=== PATIENT | male | born 1935 | race Caucasian/White ===

== ENCOUNTER → 2016-08-30 | Outpatient (CLI) | payer MEDICARE, OTHER | END | disposition home or self-care (01) | LOC: GMAB 14:10 | PROVIDERS: ATTEND Family Medicine | DX: R29.898 Other symptoms and signs involving the musculoskeletal system (principal) ==

== ENCOUNTER → 2017-02-15 | Outpatient (CLI) | payer MEDICARE, OTHER | END | disposition home or self-care (01) | LOC: GMAB 11:34 | PROVIDERS: ATTEND Family Medicine | DX: N18.4 Chronic kidney disease, stage 4 (severe) (principal) ==

== ENCOUNTER → 2017-04-28 | Outpatient (CLI) | payer MEDICARE, OTHER | END | disposition home or self-care (01) | LOC: GMAB 10:11 | PROVIDERS: ATTEND Family Medicine | DX: Z12.5 Encounter for screening for malignant neoplasm of prostate (principal); I10 Essential (primary) hypertension | CPT/HCPCS: 84443; G0103 ==

== ENCOUNTER 2017-05-05 11:59 | Inpatient (IN) | payer MEDICARE, OTHER ==
--- NOTE | 2017-05-05 12:30 | ED.PDOC ---
History of Present Illness - General Chief Complaint: Neuro Symptoms/Deficits Stated Complaint: change in mental status Time Seen by Provider: 05/05/17 12:23 Source: family Exam Limitations: clinical condition - History of Present Illness Initial Comments: THIS PATIENT COMES FROM HIS HOME AND IS TRASPORTED BY POV. HE HAS PARKINSON'S DISEASE AND PARKINSON'S DEMENTIA. HE HAS A NEUROLOGIST IN [place], [place]. THE PATIENT IS BROUGHT BECAUSE OF AMS. HE SUFFERS OF MULTIPLE FALLS AND HAS FALLEN IN THE RECENT PAST SEVERAL TIMES. HE HAS HIT HIS HEAD AT TIMES. YESTERDAY AROUND MIDNIGHT HIS MENTAL STATUS CHANGED, HE USUALLY IS MORE ALERT AND USUALLY ASSISTS WHEN HE GOES TO THE RESTROOM. DENIES ANY FEVER. HE IS SOMNOLENT BUT HE RESPONDS TO VERBAL AND PAINFUL STIMULI. Timing/Duration: other - LAST NIGHT Severity: moderate Improving Factors: nothing Worsening Factors: nothing Associated Symptoms: denies symptoms Allergies/Adverse Reactions: Allergies Sulfa Antibiotics Allergy (Verified 05/05/17 12:41) Home Medications: Ambulatory Orders Cetirizine HCl [Zyrtec] 10 mg PO DAILY@0700 12/27/13 Duloxetine HCl [Cymbalta] 60 mg PO DAILY@0700 12/27/13 Tamsulosin [Flomax] 0.4 mg PO BEDTIME 10/06/14 Carbidopa/Levodopa 25/100 [Sinemet 25/100] 1 ea PO TID 12/30/15 Memantine HCl-Donepezil HCl [Namzaric 14-10 mg] 1 cap PO DAILY 12/30/15 cloNAZepam [KlonoPIN] 0.25 mg PO DAILY PRN 05/05/17 Review of Systems - Review of Systems Constitutional: States: no symptoms reported EENTM: States: no symptoms reported Respiratory: States: no symptoms reported Cardiology: States: no symptoms reported Gastrointestinal/Abdominal: States: no symptoms reported Genitourinary: States: no symptoms reported Musculoskeletal: States: no symptoms reported Skin: States: no symptoms reported Neurological: States: other - ALTERED MENTAL STATUS Endocrine: States: no symptoms reported Hematologic/Lymphatic: States: no symptoms reported Unable to Obtain Due To: dementia, clinical condition Past Medical History (General) - Patient Medical History Hx Stroke: No Hx Dementia: Yes Hx Cardiac Disorders: - hyperlipidemia Hx Congestive Heart Failure: No Hx Hypertension: Yes Hx Diabetes: No - Vaccination History Hx Tetanus, Diphtheria Vaccination: Yes Hx Influenza Vaccination: Yes Hx Pneumococcal Vaccination: Yes - Social History Hx Tobacco Use: No Hx Alcohol Use: No Hx Substance Use: No Hx Substance Use Treatment: No Hx Depression: No - Female History Patient : No Family Medical History - Family History Father Family History: Unknown Living Status: Hx Cardiac Disease: Yes Physical Exam - Physical Exam General Appearance: Lethargic, Well Developed Eye Exam: bilateral abnormal pupil - MIOTIC PUPILS-ONE MM Ears, Nose, Throat: hearing grossly normal Neck: non-tender Respiratory: chest non-tender, lungs clear, normal breath sounds, no respiratory distress Cardiovascular/Chest: normal peripheral pulses, regular rate, rhythm, no edema, no gallop, no JVD, no murmur Peripheral Pulses: radial,right: 2+, radial,left: 2+ Gastrointestinal/Abdominal: normal bowel sounds, non tender, soft, no organomegaly, no pulsatile mass Rectal Exam: deferred Back Exam: normal inspection, no CVA tenderness, no vertebral tenderness Neurologic: other - UNABLE TO PERFORM A NERILOGICAL EXAM DUE TO THE PATIENTS CONDITION AND DEMENTIA Skin Exam: normal color Lymphatic: no adenopathy Progress - Results/Orders Results/Orders: LABORATORY AND IMAGING IS REPORTED. THE LAB OTHER THAN A MILD CASE OF VOLUME DEPLETION IS NORMAL. X RAYS OF THE CHEST, T S[INE, PELVIS AND L SPINE HAD NO OBVIOUS TRAUMATIC INJURIES. THE CT OF THE BRAIN WAS ALSO NEGATIVE FOR ACUTE PROCESS. THE UA AND UDS AND THE AMMONIUM LEVEL WERE NORMAL. I HAVE CONTACTED NATALYA SALEEM AND HE WILL BE ADMITTING THIS PATIENT FOR OBSERVATION AND RE HYDRATION. Departure - Departure Clinical Impression: Paralysis agitans, Volume depletion, Acute kidney injury Altered mental status Qualifiers: Altered mental status type: disorientation Qualified Code(s): R41.0 - Disorientation, unspecified Time of Disposition: 16:16 Disposition: Admit Patient Condition: Fair Departure Forms: ED Discharge - Pt. Copy, Patient Portal Self Enrollment Referrals: Dell Brady MD [Primary Care Provider] - 1-2 Weeks Home Medications: Ambulatory Orders Cetirizine HCl [Zyrtec] 10 mg PO DAILY@0700 12/27/13 Duloxetine HCl [Cymbalta] 60 mg PO DAILY@0700 12/27/13 Tamsulosin [Flomax] 0.4 mg PO BEDTIME 06/01/15 Carbidopa/Levodopa 25/100 [Sinemet 25/100] 1 ea PO TID 12/30/15 Memantine HCl-Donepezil HCl [Namzaric 14-10 mg] 1 cap PO DAILY 12/30/15 cloNAZepam [KlonoPIN] 0.25 mg PO DAILY PRN 05/05/17 Decision To Admit - Decistion To Admit Decision to Admit Reason: Admit from ER Decision to Admit Date: 05/05/17 Decision to Admit Time: 16:14
--- NOTE | 2017-05-05 12:53 | CT ---
EXAM DESCRIPTION: CT head without contrast CLINICAL HISTORY: Altered mental status. COMPARISON: MRI brain 02/24/2017 TECHNIQUE: Noncontrast spiral CT of the brain. This exam was performed according to our departmental dose-optimization program, which includes automated exposure control, adjustment of the mA and/or kV according to patient size and/or use of iterative reconstruction technique FINDINGS: No intracranial hemorrhage, evidence of cortical arterial infarction or mass lesion. Low-density focus in the anterior right thalamus consistent with a remote lacunar infarct based on the markedly low density. This was seen on previous CT. Periventricular white matter hypodensity related to remote microvascular ischemia Moderate cerebral volume loss with prominence of the cortical sulci and ventricular system No calvarial or skull base fracture. No mastoid fluid. Chronic right maxillary sinusitis. Interval development of mucosal thickening and a mucous retention cyst in the left sphenoid sinus since the previous CT IMPRESSION: Negative acute noncontrast head CT CT is insensitive for early evaluation of acute stroke. If there is clinical concern for acute ischemia, an MRI may be considered. Electronically signed by: Servando Dean MD 05/05/2017 12:52 PM [facility]
--- NOTE | 2017-05-05 13:44 | RAD ---
EXAM DESCRIPTION: Lumbar Spine 3 Views CLINICAL HISTORY: FALL PELVIC PAIN COMPARISON: CT the abdomen pelvis dated for September 2015 TECHNIQUE: AP and lateral FINDINGS: Pedicle screw and interbody fusion is observed at the L4-5 level. No hardware failure seen. Marked degenerative changes are observed at the L2-3 level. Vacuum disc phenomena is observed. Anterior osteophyte formation is noted. Mild anterior osteophyte formation is also observed at the L1-2 level. No evidence of fracturing is seen. A mid pole 1.19 cm in diameter left renal calculus is observed. There is evidence of prior laminectomy at the L4-5 level. IMPRESSION: Pedicle screw and interbody fusion is observed at the L4-5 level. No fracturing is detected. Electronically signed by: Renzo Garcia MD 05/05/2017 1:43 PM [facility]
--- NOTE | 2017-05-05 13:45 | RAD ---
EXAM DESCRIPTION: Pelvis CLINICAL HISTORY: FALL PELVIC PAIN COMPARISON: None. TECHNIQUE: AP pelvis FINDINGS: Pedicle screw fusion is observed at the L4-5 level of the lumbar spine. Mild osteopenia is observed. No pelvic or proximal femur fracturing is detected. The sacrum is imaged is intact. Phleboliths observed in the right side of the pelvis. IMPRESSION: No pelvic fracturing is detected. Electronically signed by: Renzo Garcia MD 05/05/2017 1:44 PM [facility]
--- NOTE | 2017-05-05 13:46 | RAD ---
EXAM DESCRIPTION: Thoracic Spine,AP Lateral CLINICAL HISTORY: FALL PELVIC PAIN COMPARISON: None. TECHNIQUE: AP and lateral FINDINGS: Mild osteopenia is observed. The pedicles are intact. No fracturing is detected. No rib injury is detected. IMPRESSION: Mild osteopenia is observed. No fracturing is detected. Electronically signed by: Renzo Garcia MD 05/05/2017 1:45 PM [facility]
--- NOTE | 2017-05-05 13:47 | RAD ---
EXAM DESCRIPTION: Chest,1 View CLINICAL HISTORY: SOB COMPARISON: 06 October 2014 TECHNIQUE: AP portable chest FINDINGS: The lungs are clear. There is no infiltrate or effusion. The heart is normal size. IMPRESSION: Normal portable chest Electronically signed by: Renzo Garcia MD 05/05/2017 1:46 PM [employer]
[2017-05-05] MEDS ORDERED: SODIUM CHLORIDE 0.9% 1000ML 1,000 ML IVS PRN (15:19)
--- NOTE | 2017-05-05 16:10 | HP ---
CHIEF COMPLAINT: Change in mental status. HISTORY OF PRESENT ILLNESS: Mr. Cheek is an 81 year-old male patient who was brought to the Emergency Department by his family via a private owned vehicle. He has a history of Parkinson's disease with Parkinson's dementia and sees a neurologist, Dr. Randhawa, in [facility]. The family brought the patient to the Emergency Room due to acute mental status change. They had noted that he had been having multiple falls and had fallen several times within the last day or so and noted he has his his head a few times. Yesterday around midnight, they noted that he had mental status changes. They report he is usually more alert and usually assists himself when he goes to the restroom but he had gotten to the point where he could not even get and walk and was picking at things that were not there and was very agitated. Denied that he had any fever prior to admission. In the Emergency Room, he was found to be afebrile with a temperature of 98.6. Multiple x-rays were completed including those of the head, CT without contrast and per radiology interpretation showed no acute hemorrhages or intracranial changes, cortical or arterial infarction or mass lesions. He also had x-rays of his lumbar spine, thoracic spine, pelvis , which all failed to show any acute findings. His chest x-ray, single view, showed a normal portable chest. His initial laboratory studies showed a normal white count of 8,400 with hemoglobin of 10.9, hematocrit 30.3 with an early left shift. Coagulation studies were within normal limits. Chemistries showed normal electrolytes but of note was his BUN was significantly elevated at 61 as well as creatinine at 1.47. In review of most recent labs done on April 28 showed that his creatinine was 1.5 but the BUN was 18. Glucose was 117. Also of note was his serum osmolality was 303. His calcium was normal as was his magnesium and liver functions along with ammonia levels. Toxicology screen showed no positive substances. Urinalysis showed a large amount of blood with greater than 50 RBCs on microscopic along with 1 to 3 WBCs and a rare bacteria on a straight cath specimen. Dr. Ludwig, Emergency Room physician, has requested that the patient be admitted to the hospital for further evaluation and treatment of acute mental status change along with the underlying dehydration with concerns for a possible early urinary tract infection and acute kidney injury. The patient is now being admitted to the medical/surgical floor. He is in stable condition at time of admission. PAST MEDICAL HISTORY: 1. Depression. 2. Hypertension. 3. Gastroesophageal reflux disease. 4. Gout. 5. Parkinson's disease. 6. Memory loss. 7. History of transient ischemic attack in October 2014. 8. Seasonal allergies. PAST SURGICAL HISTORY: 1. Transient ischemic attack in October 2014. 2. Foot surgery in May 2010. 3. Back surgery in 1999. 4. Shoulder surgery in 1994. 5. Hernia repair in 2013. CURRENT MEDICATIONS: 1. Flomax 0.4 mg at bedtime. 2. Carbidopa/Levodopa 25/100, one tablet 3 times a day. 3. Namzaric 14-10 mcg, one daily. 4. Klonopin 0.25 mg daily as needed. 5. Cymbalta 60 mg daily. 6. Zyrtec 10 mg daily. ALLERGIES: SULFA ANTIBIOTICS. FAMILY HISTORY: Father was diagnosed with heart disease and stroke. Mother diagnosed with cancer and arthritis. Both are . SOCIAL HISTORY: The patient lives in [place] and is currently living with his and is taken care of with multiple visits by his kids. He has never smoked. He only drank alcohol on a very rare occasion. REVIEW OF SYSTEMS: Obtained from family member. CONSTITUTIONAL: Denied having any fevers, chills or body aches. Was of his normal baseline health status up until 2 days ago. HEENT: They denied that he was complaining of any headaches or had any syncopal episodes, no vision changes. RESPIRATORY: There was no reported cough, congestion or exposure to any upper respiratory infections recently. CARDIOVASCULAR: No reported chest pains, palpitations or syncopal episodes. GASTROINTESTINAL: No noted diarrhea, constipation or other changes in bowel habits. GENITOURINARY: His daughter notes that he has been getting up quite often in the night to pee, more than normal with some evidence of polyuria but no reported hematuria but does have a history of microhematuria. MUSCULOSKELETAL: As noted in history of present illness. History of Parkinson' s disease with severe tremors. NEUROLOGICAL: As noted in history of present illness, altered mental status. PHYSICAL EXAMINATION: VITAL SIGNS: Initially in the Emergency Department showed a temperature of 98.1, pulse 80, blood pressure 136/81, respirations 18, saturation 97% on room air. Admission weight was 70.8 kg. GENERAL: The patient was very agitated on admission to the medical/surgical floor, trying to crawl out of bed, moaning, yelling, appeared to be well- developed but somewhat dehydrated. HEENT: Oropharynx is pink but dry. Pupils are noted to be methodic at 1 mm as he does take multiple medications. Tympanic membranes clear bilaterally. NECK: Supple, non-tender on palpation, no obvious trauma. No jugular venous distention noted and appeared to have normal range of motion. CHEST: Lungs clear to auscultation bilaterally without any rhonchi, rales, or wheezes. CARDIOVASCULAR: Regular rate and rhythm without appreciable murmurs, rubs, or gallops. ABDOMEN: Soft, non-tender with positive bowel sounds. BACK: No obvious trauma or other injuries. No notable suprapubic tenderness on palpation. EXTREMITIES: No cyanosis, clubbing, or edema and no obvious areas of trauma or injury to the lower or upper extremities. NEUROLOGIC: Unable to fully obtain a full neurological examination secondary to the patient's mental status and dementia with severe agitation and unable to follow any commands but he does move all extremities ad clemente. His facial features look symmetrical on appearance. I was unable to assess extraocular movements due to the patient being uncooperative. . LABORATORY: CBC showed a normal white count of 8,400 with hemoglobin 10, hematocrit 33.3, platelet count 198,000. Differential showed an early left shift. Coagulation studies showed normal PT/PTT. Chemistries showed normal electrolytes, potassium 4.1, BUN 61, creatinine 1.47, glucose 117. Serum osmolality 303, magnesium 1.9, calcium 8.9. Liver function studies all within normal limits. Ammonia level was 12. Urinalysis showed a large amount of blood with microscopic showing greater than 50 RBCs and 1 to 3 WBCs and rare bacteria. No epithelial cells on catheterized specimen. Urine toxicology screen as tested was all negative. MICROBIOLOGY: Urine culture pending. RADIOLOGY: He had a chest x-ray initially, single view, and per radiology interpretation there were no abnormalities noted, noted as a normal portable chest. He had his thoracic and lumbar spine x-ray as well which failed to show any acute fractures, dislocations or other acute findings. Pelvis x-ray failed to demonstrate any acute fractures, dislocations per radiology interpretation. CT of his head without contrast per radiology interpretation showed negative acute noncontrast head CT. Please see all reports for full details. ASSESSMENT: 1. Moderate dehydration with an acute mental status change, uncertain etiology, felt to be probably secondary to poor oral intake and a possible urinary tract infection. 2. Acute kidney injury likely secondary to a prerenal azotemia state with the patient having a normal baseline creatinine of 1.4 within the last month. 3. Acute mental status change with the patient having a history of Parkinson's disease and Parkinson's dementia exacerbated by dehydration and a possible metabolic encephalopathy from the underlying urinary tract infection. 4. History of Parkinson's disease and Parkinson's dementia. 5. History of recent falls, uncertain etiology with the patient having a history of transient ischemic attacks in the past with no obvious focalized motor weakness. 6. Microhematuria with concerns for a developing urinary tract infection with cultures pending. 7. History of depression. 8. History of hypertension. 9. History of gout. PLAN: The patient will be admitted to the medical/surgical floor for definitive treatment and further evaluation. For the dehydration, he was given a liter of bolus of saline in the Emergency Department. This will be followed up with continued maintenance fluids in efforts to normalize his volume status with half normal saline with 20 of potassium at 80 an hour. He will be started on Rocephin for possible urinary tract infection awaiting culture results. He will have frequent neuro checks. He will be on DVT prophylaxis as per protocol. We will resume his home medications once those have been updated and verified in the electronic medical records. Given his degree of agitation, we will try some low-dose Ativan and escalate from there to possibly needing to use Haldol, depending on how well he responds. His family notes that he has not slept much in the last 72 hours so I anticipate it will not take a whole lot of Ativan to get him comfortable. Will plan to reevaluate in the morning with laboratory studies and await culture results. Will anticipate his length of stay to be at least 2 to 3 days, In anticipation of discharge planning I have talked with the family. If the patient returns to baseline status where he was last week, the family feels very comfortable with being able to take him home and take care of him. However, if he progresses slowly and has an acute deterioration physically and unable to help himself, the family has discussed possibly there may be a temporary placement at a rehabilitation facility or a long-term care facility in efforts to help with his care and get him some rehabilitation. Taking that into account, if he does have clinical improvement as such, possible we could consider Swing for continued rehabilitation. Until that point, we will continue to monitor the patient closely and treat appropriately. Once discharged, he will certainly need close clinical followup with his primary care physician, Dr. Brady. Dr. Quijano is available for consultation. #[id number] [facility]
[2017-05-05] MEDS ORDERED: ACETAMINOPHEN SUPPOSITORY 650 MG PR PRN (17:12)
[2017-05-05] MEDS ORDERED: ONDANSETRON INJ 4 MG/2 ML VIAL IV PRN (17:12)
[2017-05-05] MEDS ORDERED: SODIUM CHLORIDE 0.9% (FLUSH) 10 ML SYG IV PRN (17:12)
[2017-05-05] MEDS: IV SET AND CAP CHANGE INJ INJ SCH (17:27)
[2017-05-05] MEDS: KCL 20MEQ/0.45% NS 1,000 ML IVS PRN (17:30)
[2017-05-05] MEDS ORDERED: SODIUM CHL 0.9% 50ML MIN-BAG+ 50 ML IVPB ONE (19:19)
[2017-05-05] MEDS ORDERED: cefTRIAXone SODIUM 1 GM VIAL ONE (19:19)
[2017-05-05] MEDS: cefTRIAXone SODIUM 1 GM in SODIUM CHL 0.9% 50ML MIN-BAG+ 50 ML IVPB SCH (19:25)
--- NOTE | 2017-05-05 21:05 | PCM.CORE ---
Physician DVT/VTE - Nurse DVT Assessment & Total Each Risk Factor Represents 3 Points: Age over 75 years Each Risk Factor Represents 1 Point: Medical PT at Bed Rest DVT Assessment Score: 4 - 3-4 High Risk Treatments: Early Ambulation *, Sequential Compression Device Pharmacological: Enoxaparin 40 mg SQ Daily
[2017-05-05] MEDS ORDERED: DULoxetine HCL 30 MG CAP PO ONE (21:10)
[2017-05-05] MEDS ORDERED: ENOXAPARIN SODIUM 40 MG/0.4 ML SYG SUBCU SCH (21:30)
[2017-05-06] MEDS: KCL 20MEQ/0.45% NS 1,000 ML IVS PRN ×2 (05:53→17:33)
[2017-05-06] MEDS: CETIRIZINE HCL 10 MG TAB PO SCH (06:43)
[2017-05-06] MEDS ORDERED: NON-FORMULARY MEDICATION 1 EA MIS (Duloxetine Hcl [Cymbalta] 60 MG) PO SCH (07:00)
[2017-05-06] MEDS ORDERED: SODIUM CHL 0.9% 50ML MIN-BAG+ 50 ML IVPB ONE ×2 (07:15→19:47)
[2017-05-06] MEDS ORDERED: cefTRIAXone SODIUM 1 GM VIAL ONE ×2 (07:15→19:47)
[2017-05-06] MEDS: cefTRIAXone SODIUM 1 GM in SODIUM CHL 0.9% 50ML MIN-BAG+ 50 ML IVPB SCH ×2 (07:17→19:53)
[2017-05-06] MEDS: BIFIDOBACTERIUM INFANTIS 4 MG CAP PO SCH (09:00)
[2017-05-06] MEDS: CARBIDOPA/LEVODOPA 25/100 1 TAB PO SCH ×3 (09:00→21:04)
[2017-05-06] MEDS ORDERED: LORazepam 0.5 MG TAB PO PRN ×2 (09:26→16:33)
[2017-05-06] MEDS: NON-FORMULARY MEDICATION 1 EA MIS (Memantine Hcl-Donepezil Hcl [Namzaric 28-10 Mg] 1 CAP) PO SCH (10:00)
--- NOTE | 2017-05-06 16:55 | PN ---
DATE: 05/06/17 SUBJECTIVE: The patient is poorly responsive but at the same time is very agitated and moving most of the time. When he takes fluid into his mouth he holds it and then ends up spitting it out. History of hallucinations in the past. History of advanced Parkinson's with associated dementia. His condition is discussed at length with Dr. Robbi Coery's neurology associate, phone number [phone] in [place]. He suggested that we continue the treatment course with treatment for the dehydrated state ruling out infection and continue to support and manage and reevaluate as time goes, and continuation of many of his home medications as ordered. OBJECTIVE: See vitals. HEART: Tones are regular. LUNGS: Clear with occasional rhonchi more on the right than the left. ABDOMEN: Soft. Significant tremor is evident. The patient usually keeps his eyes shut and tends to be very agitated with moving his arms and legs simultaneously. Will try to get him up in the chair to encourage DVT prophylaxis and continued supportive care to continue. ASSESSMENT: 1. Moderate dehydration with an acute mental status change, uncertain etiology, felt to be probably secondary to poor oral intake and a possible urinary tract infection. 2. Acute kidney injury likely secondary to a prerenal azotemia state with the patient having a normal baseline creatinine of 1.4 within the last month. 3. Acute mental status change with the patient having a history of Parkinson's disease and Parkinson's dementia exacerbated by dehydration and a possible metabolic encephalopathy from the underlying urinary tract infection. 4. History of Parkinson's disease and Parkinson's dementia. 5. History of recent falls, uncertain etiology with the patient having a history of transient ischemic attacks in the past with no obvious focalized motor weakness. 6. Microhematuria with concerns for a developing urinary tract infection with cultures pending. 7. History of depression. 8. History of hypertension. 9. History of gout. PLAN: Will continue supportive care. Continue with fluid maintenance. Offer food of his liking whenever we can. Special attention to avoid aspirations. Family is most helpful in achieving this goal. The status of his cerebral atrophy and the dementia associated with Parkinson's is discussed at length and the family is comfortable as we move forward to try to help prevent injury, but at the same time try to correct some of the hypovolemic and dehydrated state that he presents in. No evidence of a significant urinary tract infection at this time, but continue to observe closely. Repeat lab in the morning. #[id number] [facility]
[2017-05-06] MEDS ORDERED: DULoxetine HCL 30 MG CAP PO ONE (20:34)
[2017-05-06] MEDS: ENOXAPARIN SODIUM 40 MG/0.4 ML SYG SUBCU SCH (21:04)
[2017-05-06] MEDS: TAMSULOSIN 0.4 MG CAP PO SCH (21:04)
[2017-05-07] MEDS: KCL 20MEQ/0.45% NS 1,000 ML IVS PRN ×2 (06:03→20:03)
[2017-05-07] MEDS ORDERED: SODIUM CHL 0.9% 50ML MIN-BAG+ 50 ML IVPB ONE ×2 (06:37→19:21)
[2017-05-07] MEDS ORDERED: cefTRIAXone SODIUM 1 GM VIAL ONE ×2 (06:37→19:22)
[2017-05-07] MEDS: CETIRIZINE HCL 10 MG TAB PO SCH (06:43)
[2017-05-07] MEDS: DULoxetine HCL 30 MG CAP PO SCH (06:43)
[2017-05-07] MEDS: cefTRIAXone SODIUM 1 GM in SODIUM CHL 0.9% 50ML MIN-BAG+ 50 ML IVPB SCH ×2 (08:14→19:27)
[2017-05-07] MEDS: NON-FORMULARY MEDICATION 1 EA MIS (Memantine Hcl-Donepezil Hcl [Namzaric 28-10 Mg] 1 CAP) PO SCH ×3 (08:14→12:02)
[2017-05-07] MEDS: BIFIDOBACTERIUM INFANTIS 4 MG CAP PO SCH ×3 (08:15→12:02)
[2017-05-07] MEDS: CARBIDOPA/LEVODOPA 25/100 1 TAB PO SCH ×5 (08:15→21:24)
--- NOTE | 2017-05-07 12:41 | PN ---
DATE: 05/07/17 SUBJECTIVE: The patient is still poorly responsive but seemingly a little less agitated today compared to yesterday. He had fairly good sleep last night but required chemical sedation to assist with that. Hopefully, today we can cut back on the sedation and allow him to become more wide awake and to continue participating with his ongoing care. The daughter spent the night with the patient to assist with his ongoing care. Still with significant tremors. Continues with IV hydration. OBJECTIVE: VITAL SIGNS: Afebrile. Pulse 73, blood pressure 114/67, pulse 97% on room air. S GENERAL: Still not eating well and encouraged to do so. HEENT: Decreased hearing evident. LUNGS: Generally clear. HEART: Tones are regular. ABDOMEN: Soft. The patient as significant coarse tremors of upper and lower extremities. Significant movement disorder from his Parkinson's with advanced disability evidenced. LABORATORY: White count 8,600, hemoglobin down from 10.9 to 8.7 with 75% neutrophils. Chemistries show continued improvement in kidney function with BUN down from 61 to 22 this morning. Creatinine is down from 1.47 to 1.31. Hemoconcentration has improved down to a osmolality of 277 from 303. C- reactive protein is 0.5,albumin 3.2, TSH normal at 3.43. Awaiting stool guaiacs to check for bleeding. Urine shows no growth at 48 hours. ASSESSMENT: 1. Significant dehydration with associated prerenal azotemia. 2. Acute kidney injury with renal failure significantly changed from last lab studies approximately a week before in Dr. Brady's office showing some improvement as hydration has continued to assist the significantly dehydrated hypovolemic state. 3. Acute mental status change with altered loss of consciousness probably secondary to the significant dehydration with a metabolic encephalopathy contributed to by the kidney failure and the significant Parkinson's disease with associated dementia. 4. History of Parkinson's disease. 5. 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 6. History of recent falls possibly related to worsening of the movement disorder associated with Parkinson's but also consider the significant dementia state and the acute renal failure with associated metabolic encephalopathy. 7. Microhematuria with no evidence of an infection at this time. 8. History of depression. 9. History of hypertension. 10. History of gout. 11. Acute anemia, rule out GI blood loss and reevaluation to see if further support is required to assist him with his rehabilitation capabilities. PLAN: Will repeat lab in the morning. Special emptysis on nutrition with the patient requiring assistance in earthing. Will try to get up in a chair several times a day and increase activity level with physical therapy assistance when they are available. Social Service requested to assist with discharge planning since he lives at home alone with his and she is not able to care for him at this time. Reevaluate. #[id number] [facility]
[2017-05-07] MEDS: ENOXAPARIN SODIUM 40 MG/0.4 ML SYG SUBCU SCH (21:24)
[2017-05-07] MEDS: TAMSULOSIN 0.4 MG CAP PO SCH (21:24)
[2017-05-08] MEDS: CETIRIZINE HCL 10 MG TAB PO SCH (06:30)
[2017-05-08] MEDS: DULoxetine HCL 30 MG CAP PO SCH (06:30)
[2017-05-08] MEDS ORDERED: SODIUM CHL 0.9% 50ML MIN-BAG+ 50 ML IVPB ONE ×2 (07:14→19:24)
[2017-05-08] MEDS ORDERED: cefTRIAXone SODIUM 1 GM VIAL ONE ×2 (07:15→19:24)
[2017-05-08] MEDS: cefTRIAXone SODIUM 1 GM in SODIUM CHL 0.9% 50ML MIN-BAG+ 50 ML IVPB SCH ×2 (07:49→19:45)
[2017-05-08] MEDS: CARBIDOPA/LEVODOPA 25/100 1 TAB PO SCH ×3 (08:46→21:32)
[2017-05-08] MEDS: NON-FORMULARY MEDICATION 1 EA MIS (Memantine Hcl-Donepezil Hcl [Namzaric 28-10 Mg] 1 CAP) PO SCH (08:46)
[2017-05-08] MEDS: BIFIDOBACTERIUM INFANTIS 4 MG CAP PO SCH (08:46)
--- NOTE | 2017-05-08 14:33 | PN ---
DATE: 05/08/17 SUBJECTIVE: The patient is able to look around and appears to be much more alert today than yesterday. He does not remember coming into the hospital at all. When he speaks, his speech is somewhat slurred and somewhat difficult to fully understand but he is showing some slight improvement compared to the last couple of days. He is trying to eat better. He is showing interest in trying to get up even though he is still having significant weakness and instability requiring physical therapy for rehabilitation and strengthening and equilibrium management. OBJECTIVE: VITAL SIGNS: Afebrile. Pulse 75, blood pressure 112/74, pulse ox 95% on room air. LUNGS are clear. HEART tones are regular. ABDOMEN is soft. He still has a fairly significant tremor of Parkinson's. He is still not able to fully communicate his wishes but is better than before. LABORATORY: His hemoglobin has dropped from admission of 10.9 when he was in a dehydrated state down to 9.1. Of note is that he does have 2 positive stool guaiacs possibly contributing to his anemic state. Chemistries show marked improvement of renal dysfunction with BUN dropping from 61 down to 16 today. Creatinine 1.47 down to 1.24. Potassium 3.9 and C02 of 21. Urine culture showed no growth with the specimen having been obtained well before the initiation of antibiotic administration.. ASSESSMENT: 1. Significant dehydration with associated prerenal azotemia. 2. Acute kidney injury with renal failure significantly changed from last lab studies approximately a week before in Dr. Brady's office showing some improvement as hydration has continued to assist the significantly dehydrated hypovolemic state. 3. Acute mental status change with altered loss of consciousness probably secondary to the significant dehydration with a metabolic encephalopathy contributed to by the kidney failure and the significant Parkinson's disease with associated dementia. 4. History of Parkinson's disease. 5. 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 6. History of recent falls possibly related to worsening of the movement disorder associated with Parkinson's but also consider the significant dementia state and the acute renal failure with associated metabolic encephalopathy. 7. Microhematuria with no evidence of an infection at this time. 8. History of depression. 9. History of hypertension. 10. History of gout. 11. Acute anemia, rule out GI blood loss and reevaluation to see if further support is required to assist him with his rehabilitation capabilities. PLAN: Will have physical therapy evaluate in the morning for the possibility of Swing Bed rehabilitation candidacy. Social Service to assist with the patient's discharge planing with the family. The daughter and the will be here tomorrow for that consultation. Their first option would be Swing Bed, second option would be to go to a Detention Facility for continued rehabilitation until strong enough to be able to return home and a third option would be to continue with home care with home health and/or hospice assistance in an effort to prevent further deterioration. He will need to have further followup with Dr. Robbi Randhawa, neurologist in [facility]. Close followup with Dr. Brady as well. 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 Await an ultrasound study of the kidneys to evaluate if there is any mechanical or structural problem contributing to the patient's acute renal failure. Repeat lab in the morning. Reevaluation at that time. May continue with outpatient therapy if stable. #[id number] [facility]
[2017-05-08] MEDS: ACETAMINOPHEN 325 MG TAB PO PRN ×2 (16:13→21:55)
[2017-05-08] MEDS: IV SET AND CAP CHANGE INJ INJ SCH (17:03)
[2017-05-08] MEDS: TAMSULOSIN 0.4 MG CAP PO SCH (21:32)
[2017-05-08] MEDS: ENOXAPARIN SODIUM 40 MG/0.4 ML SYG SUBCU SCH (21:32)
[2017-05-08] MEDS: KCL 20MEQ/0.45% NS 1,000 ML IVS PRN (22:08)
[2017-05-09] MEDS: ACETAMINOPHEN 325 MG TAB PO PRN ×4 (06:40→23:16)
[2017-05-09] MEDS: DULoxetine HCL 30 MG CAP PO SCH (06:40)
[2017-05-09] MEDS: CETIRIZINE HCL 10 MG TAB PO SCH (06:40)
[2017-05-09] MEDS ORDERED: cefTRIAXone SODIUM 1 GM VIAL ONE ×2 (07:42→18:26)
[2017-05-09] MEDS ORDERED: SODIUM CHL 0.9% 50ML MIN-BAG+ 50 ML IVPB ONE ×2 (07:42→18:26)
[2017-05-09] MEDS: cefTRIAXone SODIUM 1 GM in SODIUM CHL 0.9% 50ML MIN-BAG+ 50 ML IVPB SCH ×2 (08:21→18:29)
[2017-05-09] MEDS: CARBIDOPA/LEVODOPA 25/100 1 TAB PO SCH ×3 (08:36→20:29)
[2017-05-09] MEDS: NON-FORMULARY MEDICATION 1 EA MIS (Memantine Hcl-Donepezil Hcl [Namzaric 28-10 Mg] 1 CAP) PO SCH (08:36)
[2017-05-09] MEDS: BIFIDOBACTERIUM INFANTIS 4 MG CAP PO SCH (08:36)
[2017-05-09] MEDS ORDERED: HALOPERIDOL LACTATE INJ 5 MG/ML VIAL IM ONE (09:11)
--- NOTE | 2017-05-09 14:13 | PN ---
SUPERVISING PHYSICIAN: Praveen Andrade MD DATE: 05/09/17 SUBJECTIVE: The patient had been very agitated this morning. They were unable to initially do his ultrasound. He was given some Haldol and is much improved. The patient's daughter and are at bedside. Since given the Haldol, he has been less agitated and more cooperative. The ultrasound was done. There are no complaints voiced by the family or the patient at this time. OBJECTIVE: VITAL SIGNS: Afebrile. Heart rate 74. Blood pressure 127/62. Respiratory rate 16. O2 saturation 98% on room air. LUNGS: Essentially clear to auscultation bilaterally. CARDIAC: Regular rate and rhythm. GASTROINTESTINAL: Abdomen is soft, nondistended, nontender. Bowel sounds are positive. EXTREMITIES: No cyanosis, clubbing or edema. LABORATORY: WBC 6.4 with a stable hemoglobin and hematocrit of 9 and 27.4. Metabolic panel is basically within normal limits with the exception of his serum osmolality slightly low at 274.5. Urine culture shows no growth after 48 hours. We continue to await his ultrasound of his kidneys. All other labs and films have been reviewed via the EMR. ASSESSMENT: 1. Significant dehydration with associated prerenal azotemia, improved with fluids. 2. Acute kidney injury with renal failure significantly changed from last lab studies approximately a week before in Dr. Brady's office showing some improvement as hydration has continued to assist the significantly dehydrated hypovolemic state. 3. Acute mental status change with altered loss of consciousness probably secondary to the significant dehydration with a metabolic encephalopathy contributed to by the kidney failure and the significant Parkinson's disease with associated dementia. 4. History of Parkinson's disease. 5. 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 6. History of recent falls possibly related to worsening of the movement disorder associated with Parkinson's but also consider the significant dementia state and the acute renal failure with associated metabolic encephalopathy. 7. Microhematuria with no evidence of an infection at this time. 8. History of depression. 9. History of hypertension. 10. History of gout. 11. Acute anemia, rule out GI blood loss and reevaluation to see if further support is required to assist him with his rehabilitation capabilities. PLAN: We will continue present supportive care. He has been evaluated by physical therapy and we will plan on discharge tomorrow from the Acute Care setting to Swing Bed admission. He ambulated with assistive devices prior to his admission and hopefully he can get to the point where he can do that again. He will also need followup with his neurologist, Dr. Robbi Corey in [place] after discharge. The family is also discussing [facility] at this time and if they decide that is their preference, we will initiate in-home hospice prior to his discharge while he is in Swing Bed and have [facility] followup with the patient and his family. Haldol worked quite well on him this morning without making him extremely drowsy, so we may have to use some additional Haldol as well as some benzodiazepines if needed. Otherwise, we will continue to monitor the patient closely and follow as needed. Dr. Andrade is the collaborating physician and available for consultation. #[id number] [facility]
[2017-05-09] MEDS: KCL 20MEQ/0.45% NS 1,000 ML IVS PRN (15:26)
[2017-05-09] MEDS: TAMSULOSIN 0.4 MG CAP PO SCH (20:29)
[2017-05-09] MEDS: ENOXAPARIN SODIUM 40 MG/0.4 ML SYG SUBCU SCH (20:29)
--- NOTE | 2017-05-09 20:41 | US ---
EXAM DESCRIPTION: Renal CLINICAL HISTORY: 81 years Male, Transient Renal Failure now improved COMPARISON: None. FINDINGS: Renal sonography was performed without evaluation of the bladder or remainder of the retroperitoneum. Right kidney is estimated at 13.1 x 6.5 x 7.3 cm in size in the left kidney 11.2 x 6.0 x 6.8 cm in size. No perinephric fluid collections and no definite hydronephrosis is noted. The lower pole of the right kidney is replaced by a either a multicystic multilobulated mass or a cluster of contiguous or simple cysts. The entire complex measures 8.3 x 6.9 x 5.8 cm. A multilocular cystic neoplasm cannot be excluded. The left kidney demonstrates a much smaller lobulated cystic mass measuring 5.2 x 4.8 x 3.0 cm. Particularly on axial images this appears to be involving the region of the renal hilum and lower pole. Possibility of parapelvic cysts or an element of prominent renal pelvis cannot be excluded. Neoplasm on the left is thought less likely than suggested on the right. IMPRESSION: Abnormal kidneys bilaterally with a large lobulated 8.2 cm multicystic mass or collection of cysts lower pole of the right kidney and smaller 5.2 cm lobulated cystic lesion involving the hilum and lower pole left kidney. Further evaluation without and with contrast enhancement is recommended. Because of the recent history of transient renal failure consider MRI of the kidneys without and with contrast enhancement for further characterization. Electronically signed by: Servando Bae MD 05/09/2017 1:56 PM DIRECTOR OF DISTRIBUTION
[2017-05-10] MEDS: KCL 20MEQ/0.45% NS 1,000 ML IVS PRN (04:38)
[2017-05-10] MEDS: CETIRIZINE HCL 10 MG TAB PO SCH (06:27)
[2017-05-10] MEDS: DULoxetine HCL 30 MG CAP PO SCH (06:27)
[2017-05-10] MEDS ORDERED: cefTRIAXone SODIUM 1 GM VIAL ONE ×2 (07:38→13:01)
[2017-05-10] MEDS ORDERED: SODIUM CHL 0.9% 50ML MIN-BAG+ 0 ML IVPB ONE (07:38)
[2017-05-10] MEDS: cefTRIAXone SODIUM 1 GM in SODIUM CHL 0.9% 50ML MIN-BAG+ 50 ML IVPB SCH (07:44)
[2017-05-10] MEDS ORDERED: HALOPERIDOL LACTATE INJ 5 MG/ML VIAL IM PRN (08:23)
[2017-05-10] MEDS: CARBIDOPA/LEVODOPA 25/100 1 TAB PO SCH ×2 (09:22→14:46)
[2017-05-10] MEDS: NON-FORMULARY MEDICATION 1 EA MIS (Memantine Hcl-Donepezil Hcl [Namzaric 28-10 Mg] 1 CAP) PO SCH (09:22)
[2017-05-10] MEDS: BIFIDOBACTERIUM INFANTIS 4 MG CAP PO SCH (09:22)
[2017-05-10] MEDS: ACETAMINOPHEN 325 MG TAB PO PRN (12:19)
[2017-05-10] MEDS ORDERED: HYDROcodone 5MG/APAP 325MG 1 EA TAB PO PRN (12:58)
[2017-05-10] MEDS ORDERED: SODIUM CHL 0.9% 50ML MIN-BAG+ 50 ML IVPB ONE (13:00)
[2017-05-10 15:05] VITALS: BP 124/72; TEMP 97.8; O2SAT 98
--- NOTE | 2017-05-10 18:23 | DS ---
SUPERVISING PHYSICIAN: Praveen Andrade M.D. DISCHARGE DIAGNOSIS: 1. Significant dehydration with associated prerenal azotemia improved with fluids. 2. Acute kidney injury with renal failure significantly changed from last lab studies approximately 1 week prior to admission in Dr. Brady's office showing improvement with hydration. 3. Acute mental status changes with loss of consciousness probably secondary to the significant dehydration and metabolic encephalopathy contributed by the kidney failure and significant Parkinson's disease with associated dementia. 4. History of Parkinson's disease. 5. History of dementia associated with Parkinson's disease. The patient has rapidly declined and question possible Lewy body dementia. 6. History of recent falls possibly related to worsening of the movement disorder associated with Parkinson's disease. 7. Microhematuria with no evidence of an infection at this time. 8. History of depression. 9. History of hypertension. 10. History of gout. 11. Acute anemia, will need to rule out acute GI blood loss at some point with a stable H&H at this time at 9.0 and 27. 4. HISTORY OF PRESENT ILLNESS: This is an 81 year-old male patient who presented to the Emergency Room via private vehicle due to acute mental status changes. He has a significant history of Parkinson's dementia. The patient reported that he had had multiple falls several days prior to his E. R. visit and associated mental status changes. He had gotten to the point where he could not walk and was picking at things that were not there as well as severe agitation. There was no history of any fever prior to his admission. He was afebrile in the Emergency Room. His x-rays were completed and showed no acute findings. CT of the head per radiology interpretation showed no acute hemorrhagic or intracranial changes, cortical or arterial infarction or mass lesions. His chest x-ray showed a normal portable chest. White count was 8400 with hemoglobin 10.9, hematocrit 30.3 with an early left shift. Coags were within normal limits. Electrolytes were within normal limits but BUN was significantly elevated at 61 as well as creatinine of 1.47. Recent lab in April showed creatinine of 1. 5 but BUN of 18. Toxicology screens were negative. Urinalysis showed a large amount of blood, greater than 50 RBCs with 1 to 3 WBCs and rare bacteria. He was admitted to the hospital for further evaluation and treatment, the treatment included Rocephin for his urinary tract infection. HOSPITAL COURSE: After some fluids, his H&H went down to 8.7 and 26, but has since stabilized up to 9 and 27.4. Creatinine has also normalized to 1.22 with BUN of 14. He did have 2 positive stool guaiacs. Urine culture showed no growth after 48 hours. A renal ultrasound was performed and it was found per radiology interpretation showed abnormal kidneys bilaterally with a large lobulated 8.2 cm multicystic mass or collection of cysts on the lower pole of the right kidney and smaller 5.2 cm lobulated cystic lesion involving the hilum and the lower pole of the left leg kidney. Recommendation of further evaluation with and without contrast enhancement and due to his recent transient renal failure, consider an MRI of the kidneys without and with contrast. The patient's confusion improved. Prior to his admission he was fairly independent in spite of his Parkinsonian disease, but now he is generally weak but his evaluation per Physical Therapy felt that he would be a good rehab potential with physical therapy and conditioning. He will be discharged from the Acute Care setting today. DISCHARGE PLAN: The patient will be discharged from the Acute Care setting to Swing Bed admission. We will continue his home medications as well as continue his Rocephin for several additional days. He has been getting some Benzodiazepines that have helped with his agitation. On discharge, the family would like him to go home and he may even go home at some point with [facility], but those will be after his strengthening and conditioning is done here in Swing Bed admission. It would be advisable for him to have an MRI of his kidneys without and with contrast at some point. Will also need to evaluate the positive stool guaiac. That can be done as an outpatient as his H& H is stable at this time. He will also need close followup with Dr. Brady after his discharge. DISCHARGE MEDICATIONS: 1. Cetirizine. 2. Cymbalta. 3. Tamsulosin. 4. Carbidopa Levodopa. 5. Namzaric. 6. Klonopin. We will continue on his inpatient medications of: 1. Haldol. 2. Lovenox. 3. [place]. 4. Rocephin. 5. Align. Dr. Andrade is the collaborating physician available for consultation. #[id number] [facility]
== END 2017-05-10 15:17 | disposition swing bed (61) | DRG 682 ==
LOC: ER 11:59 → MS 16:10 → OBSVTOIN 16:10
PROVIDERS: ADMIT Nurse Practitioner Family; ATTEND Nurse Practitioner Family
DX: N17.9 Acute kidney failure, unspecified (principal); G93.41 Metabolic encephalopathy; F02.81 Dementia in other diseases classified elsewhere, unspecified severity, with behavioral disturbance; E86.0 Dehydration; G20 Parkinson's disease; R31.29 Other microscopic hematuria; F32.9 Major depressive disorder, single episode, unspecified; I10 Essential (primary) hypertension; M10.9 Gout, unspecified; D64.9 Anemia, unspecified; R29.6 Repeated falls; R19.5 Other fecal abnormalities; E78.5 Hyperlipidemia, unspecified; J30.9 Allergic rhinitis, unspecified; K21.9 Gastro-esophageal reflux disease without esophagitis; Z86.73 Personal history of transient ischemic attack (TIA), and cerebral infarction without residual deficits; Z88.2 Allergy status to sulfonamides; Z79.899 Other long term (current) drug therapy

== ENCOUNTER 2017-05-10 15:24 | Inpatient (IN) | payer MEDICARE, OTHER ==
--- NOTE | 2017-05-10 15:25 | HP ---
SUPERVISING PHYSICIAN: Praveen Andrade MD CHIEF COMPLAINT: Strengthening and conditioning after Acute Care admission. HISTORY OF PRESENT ILLNESS: This is an 81-year-old male patient who was originally admitted to the hospital on 05/05/17 due to acute mental status changes. He does have a significant history of Parkinson's dementia. The family reported he had had multiple falls several days prior to his Emergency Room visit with associated mental status changes. He had gotten to the point where he could not walk and was picking at things that were not there as well as having severe agitation. There was no history of fever prior to his admission and he was afebrile in the Emergency Room. His x-rays were completed and showed no acute findings. CT of the head per radiologic interpretation showed no acute hemorrhagic or intracranial changes, cortical or arterial infarction or mass lesions. His chest x-ray showed a normal portable chest. His white count was 8400 with hemoglobin 10.9, hematocrit 30.3 and an early left shift. Coags were within normal limits. Electrolytes were within normal limits, but BUN was significantly elevated to 61 as well as creatinine 1.47. Recent lab in April showed creatinine 1.5, BUN 18. Toxicology screens were negative. UA showed a large amount of blood, greater than 50 RBCs and 1 to 3 WBCs as well as rate bacteria. He was admitted to the hospital for further evaluation and treatment and the treatment included Rocephin for his urinary tract infection. Over the course of his hospital stay, his hemoglobin and hematocrit did go down to 8.7 and 26, but stabilized now at 9 and 27.4. Creatinine has also normalized to his baseline of 1.22 with BUN 14. He did have two positive stool guaiacs and his urine culture showed no growth after 48 hours. Renal ultrasound was obtained and it was found per radiologic interpretation to show abnormal kidneys bilaterally with a large lobulated 8.2 cm multicystic mass or collection of cysts in the lower pole of the right kidney and smaller 5.2 cm lobulated cystic lesion that involved the hilum and lower pole of the left kidney. They recommended further evaluation with and without contrast MRI of the kidney. The patient's confusion improved. After extensive talks with the family and the patient and evaluation by physical therapy, it was felt he would be a good rehab potential with physical therapy for strengthening and conditioning and after discharge from the Acute Care setting, he will be admitted to [facility] for strengthening and conditioning. PAST MEDICAL HISTORY: 1. Depression. 2. Hypertension. 3. Gastroesophageal reflux disease. 4. Gout. 5. Parkinson's disease. 6. Memory loss. 7. History of transient ischemic attack in October 2014. 8. Seasonal allergies. PAST SURGICAL HISTORY: 1. Foot surgery in May 2010. 2. Back surgery in 1999. 3. Shoulder surgery in 1994. 4. Hernia repair in 2013. CURRENT MEDICATIONS: Per the EMR and awaiting verification. ALLERGIES: SULFA ANTIBIOTICS. FAMILY HISTORY: Father was diagnosed with heart disease and stroke. Mother diagnosed with cancer and arthritis. Both are . SOCIAL HISTORY: The patient lives in [place] with his and receives care from several of his children. He has never smoked. He only drinks alcohol on a very rare occasion. REVIEW OF SYSTEMS: Unable to obtain due to the patient's status. PHYSICAL EXAMINATION: VITAL SIGNS: Afebrile. Heart rate 82. Blood pressure 124/74. Respiratory rate 18. O2 98% on room air. GENERAL: This is an 81-year-old male patient who is lying in his hospital bed. He is in no acute distress. He does have the typical shaking that is associated with Parkinson's disease. HEENT: Normocephalic, atraumatic. Pupils are equal and reactive. Oropharynx is clear. NECK: Supple without mass. RESPIRATORY: Essentially clear to auscultation bilaterally. CHEST: There is equal rise and fall of the chest with inspiration and expiration. CARDIOVASCULAR: Regular rate and rhythm. ABDOMEN: Soft, nondistended, nontender. Bowel sounds are positive. EXTREMITIES: No cyanosis, clubbing or edema. NEUROLOGIC: Awake, alert, but very difficult to obtain any information from the patient due to his difficulty in speaking and his Parkinsonian symptoms. LABORATORY: There are no labs and films to report at this time. ASSESSMENT: 1. Weakness and instability due to recent infection as well as dehydration requiring Swing Bed admission for strengthening and conditioning. 2. Acute kidney injury with renal failure significantly changed from last lab studies, although they have normalized to his baseline upon Swing Bed admission. 3. Significant dehydration in the Acute Care setting of the hospital requiring fluids, improved. 4. Two multicystic kidney masses that may have contributed to his acute renal failure that will need further followup without and with contrast MRI in the near future. 5. Acute anemia, now stabilized and two positive stool guaiacs that will require a followup at some point. 6. History of Parkinson's disease. 7. History of dementia associated with Parkinson's disease and a rapid decline with some question of there is Lewy Body Dementia. 8. History of some recent falls, most likely related to worsening of the Parkinson's disease as well as recent infection. 9. History of depression. 10. History of hypertension. 11. History of gout. PLAN: We will admit the patient to Swing Bed. He will continue with physical therapy for strengthening and conditioning. The family has had some questions about the MRI and at some point they would most likely like to have the patient discharged with [facility]. We will need to get [facility] to come in and talk to them. I will also talk to Dr. Brady about getting an MRI with and without contrast done on the patient's kidneys due to the cysts found on ultrasound. He will need close followup with Dr. Brady. We will continue to monitor the patient closely and follow as needed. Dr. Andrade is the collaborating physician and available for consultation. #[id number] [facility]
[2017-05-10] MEDS ORDERED: MAGNESIUM HYDROXIDE 30 ML UD PO PRN (16:09)
[2017-05-10] MEDS ORDERED: SODIUM PHOS/BIPHOS ENEMA ADULT 133 ML BTTL PR PRN (16:09)
[2017-05-10] MEDS ORDERED: ACETAMINOPHEN 500 MG TAB PO PRN (16:09)
[2017-05-10] MEDS ORDERED: LORazepam 0.5 MG TAB PO PRN (16:16)
[2017-05-10] MEDS: ENOXAPARIN SODIUM 40 MG/0.4 ML SYG SUBCU SCH (17:57)
[2017-05-10] MEDS ORDERED: BIFIDOBACTERIUM INFANTIS 4 MG CAP ONE (19:39)
[2017-05-10] MEDS ORDERED: TAMSULOSIN 0.4 MG CAP ONE (19:40)
[2017-05-10] MEDS ORDERED: CARBIDOPA/LEVODOPA 25/100 1 TAB PO ONE (19:41)
[2017-05-10] MEDS ORDERED: CEFDINIR 300 MG CAP ONE (19:41)
[2017-05-10] MEDS: CEFDINIR 300 MG CAP PO SCH (20:32)
[2017-05-10] MEDS: CARBIDOPA/LEVODOPA 25/100 1 TAB PO SCH (20:32)
[2017-05-10] MEDS: BIFIDOBACTERIUM INFANTIS 4 MG CAP PO SCH (20:32)
[2017-05-10] MEDS: HYDROcodone 5MG/APAP 325MG 1 EA TAB PO PRN (20:32)
[2017-05-10] MEDS: TAMSULOSIN 0.4 MG CAP PO SCH (20:32)
[2017-05-11] MEDS ORDERED: CETIRIZINE HCL 10 MG TAB PO ONE (00:47)
[2017-05-11] MEDS ORDERED: DULoxetine HCL 30 MG CAP PO ONE (00:47)
[2017-05-11] MEDS: DULoxetine HCL 30 MG CAP PO SCH ×2 (06:53→07:02)
[2017-05-11] MEDS: CETIRIZINE HCL 10 MG TAB PO SCH ×2 (06:53→07:01)
[2017-05-11] MEDS ORDERED: DOCUSATE SODIUM 100 MG CAP ONE (07:22)
[2017-05-11] MEDS: CEFDINIR 300 MG CAP PO SCH ×2 (09:11→20:25)
[2017-05-11] MEDS: CARBIDOPA/LEVODOPA 25/100 1 TAB PO SCH ×3 (09:11→20:27)
[2017-05-11] MEDS: MEMANTINE HCL DONEPEZIL HCL PO SCH (09:11)
[2017-05-11] MEDS: BIFIDOBACTERIUM INFANTIS 4 MG CAP PO SCH ×2 (09:11→20:26)
[2017-05-11] MEDS: DOCUSATE SODIUM 100 MG CAP PO SCH (09:12)
[2017-05-11] MEDS: ACETAMINOPHEN 500 MG TAB PO PRN ×2 (10:38→15:39)
--- NOTE | 2017-05-11 10:54 | PN ---
SUPERVISING PHYSICIAN: Praveen Andrade MD DATE: 05/11/17 SUBJECTIVE: I spoke with family at length about patient's ultrasound of his kidneys as well as the recommended MRI. We will be unable to get an MRI on patient while he is Swing Admission and I have advised family to followup with Dr. Brady in regards to the MRI of his kidneys at a later date. I am not sure he would be able to do an MRI without being sedated due to his Parkinson's. There was also a complaint of a mild rash on his back. OBJECTIVE: SKIN: There is a mild maculopapular rash on his back. It is very pale pink and is only across his shoulders posteriorly. PLAN: We will continue present supportive care and code status and hospice would be appropriate for patient due to his symptoms as well as his prognosis. #[id number] [facility]
[2017-05-11] MEDS: ENOXAPARIN SODIUM 40 MG/0.4 ML SYG SUBCU SCH (15:43)
[2017-05-11] MEDS: TAMSULOSIN 0.4 MG CAP PO SCH (20:25)
[2017-05-11] MEDS: HYDROcodone 5MG/APAP 325MG 1 EA TAB PO PRN (20:25)
[2017-05-12] MEDS: LORazepam 0.5 MG TAB PO PRN ×2 (00:33→20:06)
[2017-05-12] MEDS: HALOPERIDOL LACTATE INJ 5 MG/ML VIAL IM PRN ×2 (02:16→20:16)
[2017-05-12] MEDS: CETIRIZINE HCL 10 MG TAB PO SCH (06:55)
[2017-05-12] MEDS: DULoxetine HCL 30 MG CAP PO SCH (06:55)
[2017-05-12] MEDS: CEFDINIR 300 MG CAP PO SCH ×2 (08:57→20:06)
[2017-05-12] MEDS: BIFIDOBACTERIUM INFANTIS 4 MG CAP PO SCH ×2 (08:57→20:06)
[2017-05-12] MEDS: CARBIDOPA/LEVODOPA 25/100 1 TAB PO SCH ×3 (08:57→20:07)
[2017-05-12] MEDS: DOCUSATE SODIUM 100 MG CAP PO SCH (08:57)
[2017-05-12] MEDS: MEMANTINE HCL DONEPEZIL HCL PO SCH (08:57)
[2017-05-12] MEDS: ACETAMINOPHEN 500 MG TAB PO PRN (11:17)
[2017-05-12] MEDS: ENOXAPARIN SODIUM 40 MG/0.4 ML SYG SUBCU SCH (16:14)
[2017-05-12] MEDS: HYDROcodone 5MG/APAP 325MG 1 EA TAB PO PRN (20:06)
[2017-05-12] MEDS: TAMSULOSIN 0.4 MG CAP PO SCH (20:07)
[2017-05-13] MEDS: LORazepam 0.5 MG TAB PO PRN ×2 (03:24→20:52)
[2017-05-13] MEDS: CETIRIZINE HCL 10 MG TAB PO SCH (06:17)
[2017-05-13] MEDS: DULoxetine HCL 30 MG CAP PO SCH (06:17)
[2017-05-13] MEDS: ACETAMINOPHEN 500 MG TAB PO PRN (08:53)
[2017-05-13] MEDS: MEMANTINE HCL DONEPEZIL HCL PO SCH (08:54)
[2017-05-13] MEDS: CARBIDOPA/LEVODOPA 25/100 1 TAB PO SCH ×3 (08:55→20:52)
[2017-05-13] MEDS: DOCUSATE SODIUM 100 MG CAP PO SCH (08:55)
[2017-05-13] MEDS: BIFIDOBACTERIUM INFANTIS 4 MG CAP PO SCH ×2 (08:55→20:51)
[2017-05-13] MEDS: CEFDINIR 300 MG CAP PO SCH ×2 (08:55→20:51)
[2017-05-13] MEDS: ENOXAPARIN SODIUM 40 MG/0.4 ML SYG SUBCU SCH (16:25)
[2017-05-13] MEDS: HYDROcodone 5MG/APAP 325MG 1 EA TAB PO PRN (20:51)
[2017-05-13] MEDS: TAMSULOSIN 0.4 MG CAP PO SCH (20:51)
[2017-05-13] MEDS: HALOPERIDOL LACTATE INJ 5 MG/ML VIAL IM PRN (23:45)
[2017-05-14] MEDS: LORazepam 0.5 MG TAB PO PRN ×2 (02:34→21:38)
[2017-05-14] MEDS: HYDROcodone 5MG/APAP 325MG 1 EA TAB PO PRN (02:34)
[2017-05-14] MEDS: CETIRIZINE HCL 10 MG TAB PO SCH (06:30)
[2017-05-14] MEDS: DULoxetine HCL 30 MG CAP PO SCH (06:30)
[2017-05-14] MEDS: CEFDINIR 300 MG CAP PO SCH ×2 (08:02→21:10)
[2017-05-14] MEDS: MEMANTINE HCL DONEPEZIL HCL PO SCH (08:02)
[2017-05-14] MEDS: CARBIDOPA/LEVODOPA 25/100 1 TAB PO SCH ×3 (08:02→21:10)
[2017-05-14] MEDS: BIFIDOBACTERIUM INFANTIS 4 MG CAP PO SCH ×2 (08:02→21:10)
[2017-05-14] MEDS: DOCUSATE SODIUM 100 MG CAP PO SCH (08:02)
--- NOTE | 2017-05-14 11:08 | PN ---
DATE: 05/13/17 SUPERVISING PHYSICIAN: Praveen Andrdae M.D. SUBJECTIVE: The patient has made good progress in regards to his strengthening. He does have days when he has setbacks and has worsening of his mental status and is unable to sleep. Recently he required some Ativan to assist with some sleep in that he has not been sleeping for a couple of days and was seen to get more confused. His family has been staying with him and keeping him oriented and helping with his rehab. Will anticipate hopefully discharging coming up this week with reevaluation on Monday. Discussed with the family possibly discharging to [facility], however they are not quite ready for this. They want to try home health and make sure that they have exhausted all possibilities before going to hospice. They do understand more likely that he will need to go to hospice in the near future, but again will take the approach of exhausting all other avenues prior to going to hospice. OBJECTIVE: Vital signs have been stable. Temperature 97.2, pulse 76, blood pressure 134/72, respirations 18, satting 94% on room air. His I's and O's have been fairly well balanced. Weight is 70.0 kg. CHEST: Clear to auscultation bilaterally. HEART: Regular rate and rhythm. ABDOMEN: Soft, non- tender. Positive bowel sounds. EXTREMITIES: No clubbing, cyanosis or edema. NEUROLOGIC: He remains alert, according to the family at his baseline status and does participate with physical therapy. He continues with Parkinson's type tremor. There are no new labs or radiographic studies. ASSESSMENT: 1. Weakness and instability due to recent infection prior to admission to Swing Bed as well as exacerbated by dehydration requiring ongoing strengthening and reconditioning on Swing Bed to ensure the patient's safety once returning home. 2. Acute kidney injury with renal failure having normalized upon admission to Swing Bed. 3. Two multicystic kidney masses that have been maybe contributing to his acute renal failure requiring further followup with MRI with contrast in the near future followed by Dr. Brady. 4. Acute anemia, stabilized with two positive guaiacs that will continue to be needing followup once discharged. 5. History of Parkinson's disease. 6. History of dementia associated with Parkinson's disease and a rapid decline with some question of some Lewy Body Dementia. 7. History of recent falls, most likely related to worsening of the Parkinson's disease as well as recent infection. 8. History of depression. 9. History of hypertension. 10. History of gout. PLAN: Will continue to follow the patient as he progresses through his physical therapy with evaluation this coming Monday with plan of discharging home. Again talked with the family in regards to hospice. They realize that at some point he will probably need to be on hospice. At this point they was to again exhausted all other avenues of treatment as far as like home health and will need continued communication with home health agency of choice prior to discharge. Until discharge, will continue to monitor and treat appropriately. #[id number] MTDD
[2017-05-14] MEDS: ENOXAPARIN SODIUM 40 MG/0.4 ML SYG SUBCU SCH (16:30)
[2017-05-14] MEDS: HALOPERIDOL LACTATE INJ 5 MG/ML VIAL IM PRN (21:10)
[2017-05-14] MEDS: TAMSULOSIN 0.4 MG CAP PO SCH (21:10)
[2017-05-15] MEDS: HALOPERIDOL LACTATE INJ 5 MG/ML VIAL IM PRN (04:12)
[2017-05-15] MEDS: DULoxetine HCL 30 MG CAP PO SCH (06:12)
[2017-05-15] MEDS: CETIRIZINE HCL 10 MG TAB PO SCH (06:12)
[2017-05-15] MEDS: MEMANTINE HCL DONEPEZIL HCL PO SCH (08:52)
[2017-05-15] MEDS: CARBIDOPA/LEVODOPA 25/100 1 TAB PO SCH ×3 (08:52→20:51)
[2017-05-15] MEDS: CEFDINIR 300 MG CAP PO SCH ×2 (08:53→20:51)
[2017-05-15] MEDS: DOCUSATE SODIUM 100 MG CAP PO SCH (08:53)
[2017-05-15] MEDS: BIFIDOBACTERIUM INFANTIS 4 MG CAP PO SCH ×2 (08:53→20:51)
[2017-05-15] MEDS: ENOXAPARIN SODIUM 40 MG/0.4 ML SYG SUBCU SCH (16:11)
[2017-05-15] MEDS: LORazepam 0.5 MG TAB PO PRN (20:51)
[2017-05-15] MEDS: TAMSULOSIN 0.4 MG CAP PO SCH (20:51)
[2017-05-16] MEDS: CETIRIZINE HCL 10 MG TAB PO SCH (06:34)
[2017-05-16] MEDS: DULoxetine HCL 30 MG CAP PO SCH (06:34)
[2017-05-16 07:57] VITALS: BP 157/92; TEMP 98.9; O2SAT 96
[2017-05-16] MEDS: BIFIDOBACTERIUM INFANTIS 4 MG CAP PO SCH (08:00)
[2017-05-16] MEDS: CEFDINIR 300 MG CAP PO SCH (08:00)
[2017-05-16] MEDS: DOCUSATE SODIUM 100 MG CAP PO SCH (08:00)
[2017-05-16] MEDS: CARBIDOPA/LEVODOPA 25/100 1 TAB PO SCH (08:00)
[2017-05-16] MEDS: MEMANTINE HCL DONEPEZIL HCL PO SCH (08:01)
--- NOTE | 2017-05-16 15:28 | DS ---
SUPERVISING PHYSICIAN: Servando Evans MD ADMISSION DIAGNOSIS: 1. Weakness and instability due to recent infection. 2. Acute kidney injury secondary to dehydration. 3. Multicystic kidney masses. 4. Acute anemia. 5. History of Parkinson's disease. 6. History of dementia. 7. Recent falls. 8. History of depression. 9. History of hypertension. 10. History of gout. DISCHARGE DIAGNOSIS: 1. Weakness and instability due to recent infection. 2. Acute kidney injury secondary to dehydration-improved. 3. Multicystic kidney masses. 4. Acute anemia. 5. History of Parkinson's disease. 6. History of dementia. 7. Recent falls. 8. History of depression. 9. History of hypertension. 10. History of gout. DISCHARGE CONDITION: Fair. DISCHARGE MEDICATIONS: Cymbalta 60 mg daily as he was getting here. DISCHARGE INSTRUCTIONS: Followup appointment with Dr. Brady on 05/23/17 at 2 PM. HOSPITAL COURSE: This is an 81-year-old male patient who was originally admitted to Swing Bed on 05/10/17. This was after a hospitalization due to acute kidney injury with dehydration and altered mental status. The patient was quite deconditioned and required further physical therapy in Swing Bed. He did have recheck of his labs on 05/09/17 which were a little bit improved from the ones on 05/07/17. During this time in the Swing Bed Unit, it was discussed with his regarding possible hospice. However, they were not ready for this transition at this time. Their wishes were to continue with some physical therapy here and then go home with home health. Therefore, home health was set up and he progressed to the point where he could go home with home health. Additionally, his states that she is going to [facility] as [facility] a and she does have that information as well. Therefore, on , the patient will be discharged home under home health services. His has already been notified of followup appointment as well as prescription medications. #[id number] [facility]OSPITALBobbi
== END 2017-05-16 12:28 | disposition home health service (06) | DRG 948 ==
LOC: MS 15:24 → UNDOADMIN 15:24
PROVIDERS: ADMIT Nurse Practitioner Acute Care; ATTEND Nurse Practitioner
DX: R53.1 Weakness (principal); N28.1 Cyst of kidney, acquired; G20 Parkinson's disease; F02.80 Dementia in other diseases classified elsewhere, unspecified severity, without behavioral disturbance, psychotic disturbance, mood disturbance, and anxiety; R29.6 Repeated falls; F32.9 Major depressive disorder, single episode, unspecified; I10 Essential (primary) hypertension; M10.9 Gout, unspecified; K21.9 Gastro-esophageal reflux disease without esophagitis; J30.9 Allergic rhinitis, unspecified; G47.00 Insomnia, unspecified; R19.5 Other fecal abnormalities; R21 Rash and other nonspecific skin eruption; Z88.2 Allergy status to sulfonamides; Z86.73 Personal history of transient ischemic attack (TIA), and cerebral infarction without residual deficits

== ENCOUNTER → 2017-05-17 | Outpatient (CLI) | payer MEDICARE, OTHER ==
--- NOTE | 2017-05-19 11:46 | CT ---
EXAM DESCRIPTION: Abdominopelvic w/o Contrast: Computed Tomography. CLINICAL HISTORY: HYDRONEPHROSIS COMPARISON: Ultrasound kidneys 05/09/2017. CT abdomen and pelvis 09/09/2015. TECHNIQUE: Spiral-axial scans 5.0 mm intervals through the abdomen and pelvis without oral or IV contrast. Coronal and sagittal 2.0 mm reconstructions. Total Exam DLP: 631.69 mGy-cm. This exam was performed according to our departmental CT dose-optimization program which includes automated exposure control, adjustment of the mA and/or kV according to patient size and/or use of iterative reconstruction technique; to reduce radiation dose to as low as reasonably achievable (ALARA). FINDINGS: Kidneys and Ureters: 10.8 mm stone in the lower collecting system of the left kidney, abutting the renal pelvis. Mild to moderate hydronephrosis. 2 mm stone in the lower collecting system and a 1.5 mm 3 mm stone in the upper collecting system. No radiodense stones in the left ureter. 3.3 cm left parapelvic cyst with Hounsfield density 5. 6.6 x 5.7 cm cyst in the medial right kidney was smaller cysts. Cyst versus hydronephrosis in the lower collecting system. No radiodense stones in the ureter, not distended. No radiodense stones in the kidney. Pelvic Organs: Small urinary bladder with no radiodense stones. Moderate mass effect on the inferior bladder from the enlarged prostate gland. Calcifications in the gland. Dimensions are approximately 4.3 cm craniocaudal and 5.0 x 4.0 cm in the transverse plane; also mass effect on the seminal vesicles. No fluid in the anterior peritoneal reflection. Lung bases and pleura: Senescent densities in the lung bases. Liver, stomach, spleen, and adrenal glands: 8 mm low-density structure in the superior lateral right lobe of the liver well-defined zuluaga mean Hounsfield density +25. Similar density slightly smaller in the medial subcapsular inferior right hepatic lobe. Pancreas, Gallbladder, and Ducts: Pancreas visualized. Other organs negative. Mesentery: Symmetric pararenal stranding. No other stranding or fascial thickening. No free air or free fluid. Aorta: Moderate atherosclerotic calcification mid and distal. Wall diameter within the normal range. Dilated proximal left common iliac artery with atherosclerotic calcification. Small Bowel: Minimal gas and fluid with no distention. Terminal Ileum/Cecum: Normal caliber of the TI. Normal caliber of the appendix. Minimal gas and fecal matter in the cecum. Normal density of the surrounding fat. Colon: Diverticula mid and distal colon. Proximal and mid colon. Mostly fecal material. Normal mucosal thickness and no abnormal fatty stranding around the diverticula segments. Spine and Bony Pelvis: Fusion construct posterior at L4-5 with canal and significant bilateral foraminal narrowing. Advanced spondylosis L2-3 with significant bilateral foraminal narrowing. Depression of the T11 superior endplate with sclerosis unknown age but no significant retropulsion. Narrowing T10-11 foramina. Levoscoliosis. Hypertrophy of the right superior lateral acetabulum with narrowing of the superior lateral joint space and over coverage of the right femoral head. Abdominal Wall/Back Soft Tissues: Unremarkable. Calcification subcutaneous tissues on the right buttock. Lung bases and pleura are unremarkable. Coronary artery calcification.. IMPRESSION: 1. Cyst in the lower pole or lower renal collecting system has enlarged in the right kidney since the prior study. More mass effect on the lower pole. Less perirenal stranding on the right. Stones in in the right collecting system are no longer present. Consider follow-up study with IV contrast to delineate cyst from collecting system. 11 mm Stone in the lower collecting system of the left kidney is stable. Stable cysts in the left kidney. 2. Stable low densities in the liver most likely cysts. 3. Stable diverticulosis in the colon. 4. Stable fusion construct L4-5 and stable spondylosis L2-3. Compression injury superior T11 is new since the prior study. Correlate with clinical findings. Electronically signed by: Bryan Porter MD 05/19/2017 11:45 AM [facility]
== END | disposition home or self-care (01) ==
LOC: LAB.O 15:02
PROVIDERS: ATTEND Urology
DX: N13.0 Hydronephrosis with ureteropelvic junction obstruction (principal)

== ENCOUNTER 2017-06-01 19:19 | Emergency (ER) | payer MEDICARE, OTHER ==
--- NOTE | 2017-06-01 19:39 | ED.PDOC ---
History of Present Illness - General Chief Complaint: Trauma Stated Complaint: fell out of chair Time Seen by Provider: 06/01/17 19:25 Source: RN notes reviewed, Vital Signs reviewed Additional Information: 81 YEAR OLD BROUGHT HERE BY AMBULANCE FOR EVALUATION OF FALL HE HAS HISTORY OF FREQUENT FALLS SECONDARY TO HIS PARKINSONS DISEASE NORMALLY HE GETS UP BY HIMSELF BUT NOT TODAY HE HAD FALLEN TO HIS RIGHT SIDE AND NO HEAD INJURY REPORTED NO LOC HE APPEARS ALERT AND NO DISTRESS LITTLE PALE AND HAS RIGIDITY OF THE EXTREMITIES SECONDARY TO PARKINSONS - History of Present Illness Allergies/Adverse Reactions: Allergies Sulfa Antibiotics Allergy (Verified 06/01/17 20:06) Home Medications: Ambulatory Orders Cetirizine HCl [Zyrtec] 10 mg PO DAILY@0700 12/27/13 Tamsulosin [Flomax] 0.4 mg PO BEDTIME 10/06/14 Carbidopa/Levodopa 25/100 [Sinemet 25/100] 1 ea PO TID 12/30/15 Memantine HCl-Donepezil HCl [Namzaric 14-10 mg] 1 cap PO DAILY 12/30/15 cloNAZepam [Klonopin] 0.25 mg PO DAILY PRN 05/05/17 DULoxetine HCL [Cymbalta] 60 mg PO DAILY@0700 #30 cap 05/16/17 Review of Systems - Review of Systems Constitutional: States: no symptoms reported EENTM: States: no symptoms reported Respiratory: States: no symptoms reported Cardiology: States: no symptoms reported Gastrointestinal/Abdominal: States: no symptoms reported Genitourinary: States: no symptoms reported Musculoskeletal: States: see HPI Skin: States: no symptoms reported Neurological: States: see HPI Endocrine: States: no symptoms reported Hematologic/Lymphatic: States: no symptoms reported Past Medical History (General) - Patient Medical History Hx Seizures: No Hx Stroke: Yes Hx Dementia: Yes Hx Asthma: No Hx of COPD: No Hx Cardiac Disorders: - hyperlipidemia Hx Congestive Heart Failure: No Hx Pacemaker: No Hx Hypertension: Yes Hx Diabetes: No Hx MRSA: No - Vaccination History Hx Tetanus, Diphtheria Vaccination: Yes Hx Influenza Vaccination: Yes Hx Pneumococcal Vaccination: Yes - Social History Hx Tobacco Use: No Hx Alcohol Use: No Hx Substance Use: No Hx Substance Use Treatment: No Hx Depression: No Hx Physical Abuse: No Hx Emotional Abuse: No - Female History Patient : No Family Medical History - Family History Father Family History: Unknown Living Status: Hx Cardiac Disease: Yes Physical Exam - Physical Exam General Appearance: Alert, Comfortable Eye Exam: bilateral normal Ears, Nose, Throat: hearing grossly normal, normal ENT inspection, normal pharynx Neck: non-tender, full range of motion, supple Respiratory: chest non-tender, lungs clear, normal breath sounds, no respiratory distress, no accessory muscle use Cardiovascular/Chest: normal peripheral pulses, regular rate, rhythm, no edema, no gallop, no JVD, no murmur Gastrointestinal/Abdominal: normal bowel sounds, non tender, soft, no organomegaly, no pulsatile mass Back Exam: normal inspection Neurologic: energy conservation representative II-XII nml as tested, no motor/sensory deficits, alert, oriented x 3 Departure - Departure Clinical Impression: Parkinson disease, Shy-Drager syndrome, Anemia Time of Disposition: 21:56 Disposition: Discharge to Home or Self Care Condition: Fair Departure Forms: ED Discharge - Pt. Copy, Patient Portal Self Enrollment Instructions: DI for Trauma Diet: resume usual diet Activity: ambulate only with walker Referrals: Dell Brayd MD [Primary Care Provider] - 1-2 Weeks Home Medications: Ambulatory Orders Cetirizine HCl [Zyrtec] 10 mg PO DAILY@0700 12/27/13 Tamsulosin [Flomax] 0.4 mg PO BEDTIME 10/06/14 Carbidopa/Levodopa 25/100 [Sinemet 25/100] 1 ea PO TID 12/30/15 Memantine HCl-Donepezil HCl [Namzaric 14-10 mg] 1 cap PO DAILY 12/30/15 cloNAZepam [Klonopin] 0.25 mg PO DAILY PRN 05/05/17 DULoxetine HCL [Cymbalta] 60 mg PO DAILY@0700 #30 cap 05/16/17
[2017-06-01 19:42] VITALS: O2SAT 98
--- NOTE | 2017-06-01 20:11 | RAD ---
EXAM DESCRIPTION: Pelvis CLINICAL HISTORY: 81 years Male FALL COMPARISON: None. TECHNIQUE: Single AP view of the pelvis. FINDINGS: No acute fractures or dislocations are identified. No osseous destructive lesions. Previous spinal fusion at L4-L5. Degenerative changes in the lower lumbar spine. Fecal material obscures evaluation of the sacrum. Calcification in the right pelvis which is unchanged. IMPRESSION: No acute fracture is identified. CT or MRI could be obtained to better evaluate the hips if there is continued clinical concern. Electronically signed by: Jessica Arias 06/01/2017 8:10 PM [facility]
--- NOTE | 2017-06-01 20:13 | RAD ---
EXAM DESCRIPTION: Shoulder,Right 2 or More Views CLINICAL HISTORY: 81 years Male FALL COMPARISON: None. TECHNIQUE: RIGHT shoulder three view FINDINGS: No acute fractures or dislocations identified. No osseous destructive lesions. Acromioclavicular joint appears maintained. Degenerative change at the AC joint with well-corticated osteophyte or ununited apophysis. IMPRESSION: No acute fracture or dislocation identified. Electronically signed by: Jessica Arias 06/01/2017 8:11 PM [facility]
[2017-06-01] MEDS ORDERED: SODIUM CHLORIDE 0.9% 1000ML 1,000 ML ONE (21:17)
[2017-06-01 22:31] VITALS: BP 173/96; TEMP 97.8
[2017-06-01] MEDS ORDERED: SODIUM CHLORIDE 0.9% 1000ML 1,000 ML IVS ONE (22:31)
== END 2017-06-01 22:20 | disposition home or self-care (01) ==
LOC: ER 19:19
DX: G20 Parkinson's disease (principal); F02.80 Dementia in other diseases classified elsewhere, unspecified severity, without behavioral disturbance, psychotic disturbance, mood disturbance, and anxiety; G90.3 Multi-system degeneration of the autonomic nervous system; D64.9 Anemia, unspecified; Z91.81 History of falling
CPT/HCPCS: 36415; 72170; 73030; 80048; 81001; 85025; J7030

== ENCOUNTER → 2017-07-07 | Outpatient (CLI) | payer MEDICARE, OTHER | LOC: GMAB 12:24 | PROVIDERS: ATTEND Family Medicine | DX: D64.9 Anemia, unspecified (principal); N17.9 Acute kidney failure, unspecified ==

== ENCOUNTER → 2017-07-10 | Outpatient (CLI) | payer MEDICARE, OTHER | LOC: GMAB 10:02 | PROVIDERS: ATTEND Family Medicine | DX: D64.9 Anemia, unspecified (principal); R30.9 Painful micturition, unspecified ==

== ENCOUNTER 2017-10-27 08:01 | Emergency (ER) | payer MEDICARE, OTHER ==
[2017-10-27] MEDS ORDERED: SODIUM CHLORIDE 0.9% 1000ML 1,000 ML IVS ONE (08:11)
--- NOTE | 2017-10-27 08:15 | ED.PDOC ---
History of Present Illness - General Chief Complaint: General Stated Complaint: Weakness, altered mental status Time Seen by Provider: 10/27/17 08:02 Source: EMS Exam Limitations: clinical condition, physical impairment - History of Present Illness Initial Comments: patient is brought in by EMS after being found in a ditch beside a road while he was walking his dog. Patient's was able to be contacted and is on her way to the emergency room but did state that he was walking his dog and has known Parkinson's and mild dementia. Patient cannot tell us what happened just states that he was looking at a road where they might move and that the last thing that he remembers. He denies any discomfort or pain but his words are not clear and he does have a difficult time finding vocabulary even to answer questions. He can follow commands. Patient is awake and appears anxious but in no respiratory distress. Timing/Duration: unsure, other - per he has been out walking since 5 am Severity: severe Worsening Factors: nothing Associated Symptoms: denies symptoms Allergies/Adverse Reactions: Allergies Sulfa Antibiotics Allergy (Verified 10/27/17 08:13) Home Medications: Ambulatory Orders Tamsulosin [Flomax] 0.4 mg PO BEDTIME 10/06/14 Carbidopa/Levodopa 25/100 [Sinemet 25/100] 1 ea PO TID 12/30/15 DULoxetine HCL [Cymbalta] 60 mg PO DAILY 10/27/17 Memantine HCl-Donepezil HCl [Namzaric 28-10 mg] 1 capsule PO DAILY 10/27/17 Review of Systems - Review of Systems Review of Systems: 10/27/17 08:14 limited by altered LOC, see HPI Constitutional: States: no symptoms reported EENTM: States: no symptoms reported Respiratory: States: no symptoms reported Cardiology: States: no symptoms reported Gastrointestinal/Abdominal: States: no symptoms reported Genitourinary: States: no symptoms reported Past Medical History (General) - Patient Medical History Hx Seizures: No Hx Stroke: Yes Hx Dementia: Yes Hx Asthma: No Hx of COPD: No Hx Cardiac Disorders: - hyperlipidemia Hx Congestive Heart Failure: No Hx Pacemaker: No Hx Hypertension: Yes Hx Diabetes: No Hx Cancer: No Hx Hepatitis C: No Hx MRSA: No - Vaccination History Hx Tetanus, Diphtheria Vaccination: Yes Hx Influenza Vaccination: Yes Hx Pneumococcal Vaccination: Yes - Social History Hx Tobacco Use: No Hx Alcohol Use: No Hx Substance Use: No Hx Substance Use Treatment: No Hx Depression: No Hx Physical Abuse: No Hx Emotional Abuse: No - Female History Patient : No Family Medical History - Family History Father Family History: Unknown Living Status: Hx Cardiac Disease: Yes Physical Exam - Physical Exam General Appearance: Alert, Anxious Eye Exam: bilateral normal Ears, Nose, Throat: hearing grossly normal, normal ENT inspection, normal pharynx, abnormal TM (R), other - no trauma to the head noted Neck: non-tender, full range of motion, supple, normal inspection Respiratory: chest non-tender, lungs clear, normal breath sounds, no respiratory distress, no accessory muscle use Cardiovascular/Chest: normal peripheral pulses, regular rate, rhythm, no edema, no gallop, no JVD, no murmur Peripheral Pulses: radial,right: 2+, radial,left: 2+, posterior tibialis,right: 2+, posterior tibialis,left: 2+ Gastrointestinal/Abdominal: normal bowel sounds, soft, no organomegaly, other - mild tenderness to RLQ with no rebound or guarding Back Exam: normal inspection, no CVA tenderness, no vertebral tenderness Extremity: normal range of motion, non-tender, normal inspection, other - blisteres on R 1-5 toes that are fresh with mild bleeding Neurologic: alert, disoriented x 3, other - no facial droop, normal babinskis, moving 4 all 4 extremities normally. slight resting tremor to bilateral hands, DTR: 2+: Biceps, left, Biceps, right, Patellar, left, Patellar, right Skin Exam: normal color, other - see extremity exam Progress - Progress Progress: 10/27/17 09:50 10/27/17 08:15 EKG STAT 10/27/17 08:16 Abdoment/Pelvis w/o Contrast [CT] Stat 10/27/17 08:32 URINE CULTURE W/COLONY COUNT Stat 10/27/17 09:41 cefTRIAXone SODIUM [Rocephin] 1 gm Sodium Chl 0.9% 50Ml Min-Bag+ [NS 50ml MINI -BAG+] 50 ml IVPB ONCE Laboratory Results WBC 7.0 K/mm3 (4.8-10.8) 10/27/17 07:40 RBC 4.66 M/mm3 (4.70-6.10) L 10/27/17 07:40 Hgb 11.7 gm/dL (14.0-18.0) L 10/27/17 07:40 Hct 36.4 % (42.0-52.0) L 10/27/17 07:40 MCV 78.0 fl (80.0-94.0) L 10/27/17 07:40 MCH 25.1 pg (27.0-31.0) L 10/27/17 07:40 MCHC 32.1 g/dL (33.0-37.0) L 10/27/17 07:40 RDW 17.3 % (11.5-14.5) H 10/27/17 07:40 Plt Count 207 K/mm3 (130-400) 10/27/17 07:40 MPV 9.5 fl (7.40-10.4) 10/27/17 07:40 Absolute Neuts (auto) 5.50 K/uL (1.8-6.8) 10/27/17 07:40 Absolute Lymphs (auto) 0.70 K/uL (1.0-3.4) L 10/27/17 07:40 Absolute Monos (auto) 0.50 K/uL (0.2-0.8) 10/27/17 07:40 Absolute Eos (auto) 0.20 K/uL (0.0-0.4) 10/27/17 07:40 Absolute Basos (auto) 0.10 K/uL (0.0-0.1) 10/27/17 07:40 Neutrophils % 78.6 % (42.0-78.0) H 10/27/17 07:40 Lymphocytes % 10.2 % (20.0-50.0) L 10/27/17 07:40 Monocytes % 7.5 % (2.0-9.0) 10/27/17 07:40 Eosinophils % 2.6 % (1.0-5.0) 10/27/17 07:40 Basophils % 1.1 % (0.0-2.0) 10/27/17 07:40 PT 12.6 SECONDS (9.4-12.5) H 10/27/17 07:40 INR 1.090 10/27/17 07:40 PTT (SP) 25.7 SECONDS (25.1-36.5) 10/27/17 07:40 Sodium 144 mmol/L (135-145) 10/27/17 07:40 Potassium 3.8 mmol/L (3.6-5.0) 10/27/17 07:40 Chloride 109 mmol/L (101-111) 10/27/17 07:40 Carbon Dioxide 26 mmol/L (21-31) 10/27/17 07:40 Anion Gap 12.8 (12-18) 10/27/17 07:40 BUN 22 mg/dL (7-18) H 10/27/17 07:40 Creatinine 1.51 mg/dL (0.6-1.3) H 10/27/17 07:40 BUN/Creatinine Ratio 14.6 (10-20) 10/27/17 07:40 Random Glucose 98 mg/dL (70-105) 10/27/17 07:40 Serum Osmolality 290.1 mOsm/L (275-295) 10/27/17 07:40 Calcium 9.0 mg/dL (8.4-10.2) 10/27/17 07:40 Total Bilirubin 0.5 mg/dL (0.2-1.0) 10/27/17 07:40 AST 16 IU/L (10-42) 10/27/17 07:40 ALT 9 IU/L (10-60) L 10/27/17 07:40 Alkaline Phosphatase 51 IU/L (42-121) 10/27/17 07:40 Creatine Kinase 69 IU/L (38-174) 10/27/17 07:40 CK-MB (CK-2) 2.0 ng/mL (0.0-4.4) 10/27/17 07:40 CK-MB (CK-2) % Not Reportable 10/27/17 07:40 Troponin I 0.05 ng/mL (0.01-0.05) 10/27/17 07:40 Serum Total Protein 6.4 gm/dL (6.4-8.2) 10/27/17 07:40 Albumin 3.6 g/dl (3.2-5.5) 10/27/17 07:40 Globulin 2.8 gm/dL (2.3-3.5) 10/27/17 07:40 Albumin/Globulin Ratio 1.3 (1.1-1.9) 10/27/17 07:40 Urine Color Yellow (Yellow) 10/27/17 08:32 Urine Appearance Clear (Clear) 10/27/17 08:32 Urine pH 7.0 (4.5-7.8) 10/27/17 08:32 Ur Specific [place] 1.025 (1.005-1.030) 10/27/17 08:32 Urine Protein 100 mg/dL H 10/27/17 08:32 Urine Glucose (UA) Negative mg/dL (Negative) 10/27/17 08:32 Urine Ketones Negative mg/dL (NEGATIVE) 10/27/17 08:32 Urine Blood Moderate (Negative) H 10/27/17 08:32 Urine Nitrite Negative 10/27/17 08:32 Urine Bilirubin Negative (NEGATIVE) 10/27/17 08:32 Urine Urobilinogen 0.2 mg/dL (0.2-1.0) 10/27/17 08:32 Ur Leukocyte Esterase Trace (Negative) H 10/27/17 08:32 Urine RBC 40-50 /hpf H 10/27/17 08:32 Urine WBC 10-20 /hpf H 10/27/17 08:32 Ur Epithelial Cells 0 /hpf 10/27/17 08:32 Urine Bacteria 1+ 10/27/17 08:32 Patient Name: ADINA WEISS Gender: Male Date of : 1935 Referring Physician: KATHERIN BLUM Organization: [facility] Accession Number: [id number] Requested Date: October 27, 2017 08:11 Report Status: Final Requested Procedure: 1 Procedure Description: Cervical Spine Modality: CT Findings Reporting MD: Jean-Claude Ford Fellow MD: Not available Dictation Time: Supervisor Multifocal Lens: Not available Associate Teacher Date: EXAM DESCRIPTION: Cervical Spine CLINICAL HISTORY: altered LOC/fall COMPARISON: None Available. TECHNIQUE: Multiple axial images of the cervical spine without contrast. Multiplanar reformatted images. This exam was performed according to our departmental dose-optimization program, which includes automated exposure control, adjustment of the mA and/or kV according to patient size and/or use of iterative reconstruction technique. FINDINGS: The bones are demineralized. Straightening of the normal cervical lordosis which may be seen with positioning or muscle spasm. Vertebral body stature is maintained. There is no acute fracture or destructive osseous lesion. Diffuse multilevel spondylitic changes throughout the cervical spine which are most advanced at C5-C6 where there is severe disc narrowing and osteophytic ridging of the endplates. Multilevel uncovertebral spurring and facet degenerative changes with up to moderate to severe bilateral neural foraminal stenosis and mild spinal canal stenosis at C5-C6. More mild to moderate stenoses at the remaining levels. Calcific plaque in the visualized arteries. Few scattered foci of gas in the venous structures of the left neck and thoracic apex, likely iatrogenic and related to vascular access attempt. Radiology [employer]. [address] [place] [address], [address] [facility] [phone] F [phone] [email or web address] - Report exported on Oct 27, 2017 09:50:68 -0613 - Page 2 of 2 Mild fibrotic changes in the lung apices. IMPRESSION: 1. No CT evidence of an acute osseous abnormality in the cervical spine. 2. Multilevel spondylitic changes which are most advanced at C5-C6. Patient Name: ADINA WEISS Gender: Male Date of : 1935 Referring Physician: KATHERIN BLUM Organization: [facility] Accession Number: [id number] Requested Date: October 27, 2017 08:11 Report Status: Final Requested Procedure: 1 Procedure Description: Head Modality: CT Findings Reporting MD: Jean-Claude Ford Fellow MD: Not available Dictation Time: Supervisor Multifocal Lens: Not available Associate Teacher Date: EXAM DESCRIPTION: CT Head CLINICAL HISTORY: altered LOC/fall COMPARISON: 05/05/2017 TECHNIQUE: Multiple axial images of the head without contrast. Multiplanar reformatted images. This exam was performed according to our departmental dose-optimization program, which includes automated exposure control, adjustment of the mA and/or kV according to patient size and/or use of iterative reconstruction technique. FINDINGS: There is no CT evidence of intracranial hemorrhage, mass effect, or large territory infarction. Moderate generalized volume loss. Moderate patchy supratentorial white matter hypodensities. Chronic lacunar infarct in the right thalamus. Additional chronic lacunar infarct in the left internal capsule. There are no abnormal extra-axial fluid collections. Calcific plaque in the visualized arteries. There is no acute calvarial defect. Severe inflammatory changes in the right maxillary and left sphenoid sinus again demonstrated. The mastoid air cells are clear. IMPRESSION: 1. No CT evidence of an acute intracranial abnormality. If there [employer]. [address] [place] [address], [address] Floor [place], [place] T [phone] F [phone] [email or web address] Report exported on Oct 27, 2017 09:51:07 -0500 - Page 2 of 2 is concern for an acute or subacute infarct, consider follow-up MRI. 2. Advanced senescent changes. 3. Severe inflammatory changes in the paranasal sinuses. 10/27/17 09:51 patient's arrived shortly after patient's admission to the emergency room as well as his home health care nurse. Both state that this is his usual baseline mental status and he does not appear to have any deficits. Patient wasbetter underneath the care of his and he had no acute complaints at that time. We did discuss the hematuria noted on the urine and patient's states that he often does have even and he sees a weight yardage checker for this. He's had no fever or chills and no dysuria. At this time he does not appear to have an acute infection and is this is chronic we will not treat it. Patient appears to have no injury from the fall L be discharged home to his . Of note, is aware of the chronic cyst and kidney findings discussed in the CT of the abdomen. No acute findings secondary to the fall seen 10/27/17 09:57 - EKG/XRAY/CT EKG: Sinus, no ST T wave changes Comments: sinus with normal axis and rate of 62 Departure - Departure Clinical Impression: Fall Qualifiers: Encounter type: initial encounter Qualified Code(s): W19.XXXA - Unspecified fall, initial encounter Disposition: Discharge to Home or Self Care Condition: Good Departure Forms: ED Discharge - Pt. Copy, Patient Portal Self Enrollment Diet: regular diet Activity: walking as tolerated Referrals: Dell Brady MD [Primary Care Provider] - 1-2 Weeks Home Medications: Ambulatory Orders Tamsulosin [Flomax] 0.4 mg PO BEDTIME 10/06/14 Carbidopa/Levodopa 25/100 [Sinemet 25/100] 1 ea PO TID 12/30/15 DULoxetine HCL [Cymbalta] 60 mg PO DAILY 10/27/17 Memantine HCl-Donepezil HCl [Namzaric 28-10 mg] 1 capsule PO DAILY 10/27/17 Additional Instructions: follow up with PCP in 4-5 days and with home health as scheduled. Return to ER for altered LOC, pain
--- NOTE | 2017-10-27 09:25 | CT ---
EXAM DESCRIPTION: Cervical Spine CLINICAL HISTORY: altered LOC/fall COMPARISON: None Available. TECHNIQUE: Multiple axial images of the cervical spine without contrast. Multiplanar reformatted images. This exam was performed according to our departmental dose-optimization program, which includes automated exposure control, adjustment of the mA and/or kV according to patient size and/or use of iterative reconstruction technique. FINDINGS: The bones are demineralized. Straightening of the normal cervical lordosis which may be seen with positioning or muscle spasm. Vertebral body stature is maintained. There is no acute fracture or destructive osseous lesion. Diffuse multilevel spondylitic changes throughout the cervical spine which are most advanced at C5-C6 where there is severe disc narrowing and osteophytic ridging of the endplates. Multilevel uncovertebral spurring and facet degenerative changes with up to moderate to severe bilateral neural foraminal stenosis and mild spinal canal stenosis at C5-C6. More mild to moderate stenoses at the remaining levels. Calcific plaque in the visualized arteries. Few scattered foci of gas in the venous structures of the left neck and thoracic apex, likely iatrogenic and related to vascular access attempt. Mild fibrotic changes in the lung apices. IMPRESSION: 1. No CT evidence of an acute osseous abnormality in the cervical spine. 2. Multilevel spondylitic changes which are most advanced at C5-C6. Electronically signed by: Jean-Claude Ford MD 10/27/2017 9:24 AM CDT
--- NOTE | 2017-10-27 09:29 | CT ---
EXAM DESCRIPTION: CT Head CLINICAL HISTORY: altered LOC/fall COMPARISON: 05/05/2017 TECHNIQUE: Multiple axial images of the head without contrast. Multiplanar reformatted images. This exam was performed according to our departmental dose-optimization program, which includes automated exposure control, adjustment of the mA and/or kV according to patient size and/or use of iterative reconstruction technique. FINDINGS: There is no CT evidence of intracranial hemorrhage, mass effect, or large territory infarction. Moderate generalized volume loss. Moderate patchy supratentorial white matter hypodensities. Chronic lacunar infarct in the right thalamus. Additional chronic lacunar infarct in the left internal capsule. There are no abnormal extra-axial fluid collections. Calcific plaque in the visualized arteries. There is no acute calvarial defect. Severe inflammatory changes in the right maxillary and left sphenoid sinus again demonstrated. The mastoid air cells are clear. IMPRESSION: 1. No CT evidence of an acute intracranial abnormality. If there is concern for an acute or subacute infarct, consider follow-up MRI. 2. Advanced senescent changes. 3. Severe inflammatory changes in the paranasal sinuses. Electronically signed by: Jean-Claude Ford MD 10/27/2017 9:27 AM CDT
[2017-10-27] MEDS ORDERED: cefTRIAXone SODIUM 1 GM in SODIUM CHL 0.9% 50ML MIN-BAG+ 50 ML IVPB ONE (09:41)
--- NOTE | 2017-10-27 09:55 | CT ---
EXAM DESCRIPTION: Abdomen/Pelvis w/o Contrast: Computed Tomography. CLINICAL HISTORY: pain with altered LOC COMPARISON: CT scan of the head and CT scan of cervical spine on the same visit. CT abdomen and pelvis 05/17/2017. IVP 09/16/2015. TECHNIQUE: Spiral-axial scans 5.0 mm intervals through the abdomen and pelvis without oral or IV contrast. Coronal and sagittal 2.0 mm reconstructions. Total Exam DLP: 594.85 mGy-cm. This exam was performed according to our departmental CT dose-optimization program which includes automated exposure control, adjustment of the mA and/or kV according to patient size and/or use of iterative reconstruction technique; to reduce radiation dose to as low as reasonably achievable (ALARA). FINDINGS: Lung bases and pleura: Scarring and bibasilar pleural thickening. Liver, stomach, spleen, and adrenal glands: Cyst in the inferior right lobe and 2 cysts, lateral subcapsular left lobe. Stomach unremarkable with prominent spleen and adrenal glands negative. Pancreas, Gallbladder, and Ducts: Dilated gallbladder and common bile duct and pancreas negative. Kidneys and Ureters: Minimal hydronephrosis in the upper pole of the right kidney and marked hydronephrosis in the lower pole along with a 7.6 cm parapelvic cyst and dilated right renal pelvis. Bifid ureters with 1 ureter distended and periureteral stranding. 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 Minimal left hydronephrosis as well as parapelvic cysts and dilated left renal pelvis. 1.3 cm stone in the inferior collecting system. 2 and 3 mm stones in the superior collecting system and another 3 mm stone in the inferior collecting system. Dilated single left ureter and periureteral edema with a 2 mm radiodense stone in the ureter approximately 5 cm from the bladder. Bilateral perirenal fatty stranding. Mesentery: Stranding around the kidneys and bilateral ureters. Aorta: Atherosclerotic calcifications and ectasia. Small Bowel: Negative. Terminal Ileum/Cecum: Unremarkable. Appendix normal caliber. Normal density of surrounding fat. Colon: Multiple diverticula in the sigmoid colon which is minimally redundant. Mostly fecal material in the proximal colon. Pelvic Organs: Bladder wall thickening. No radiodense stones in the urinary bladder. Markedly enlarged prostate gland, 5.3 x 4.3 x 5.3 cm, impressing on the base of the urinary bladder. Also impressing on the seminal vesicles. No free fluid. Spine and Bony Pelvis: Posterior fusion construct L4-5. Spondylosis at multiple levels more severe at L2-3. Superior compression type fracture T11 of unknown onset and duration. Bilateral T10-11 foramina or narrowing. Spondylosis in the lower thoracic spine. Bilateral hypertrophic changes in the acetabula with over covering of the femoral heads. Hip joint space narrowing. Abdominal Wall/Back Soft Tissues: Negative. IMPRESSION: 1. Chronic bilateral nephrolithiasis. 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 Large right parapelvic cysts and dilated pelvis. 8.6 mm radiodense stone in the common ureter distally above the ureterovesical junction. Slight enlargement and distal migration since the prior study. Multiple stones in the left kidney with hydronephrosis. Largest stone 1.3 cm, stable since the prior study. Left hydroureter with 2 mm stone 5 cm from the ureterovesical junction. Recommend urologic consult and CT scan of the abdomen and pelvis with IV contrast to compare to the current study. 2. Enlarged prostate gland impressing on the base of the urinary bladder with signs of bladder outlet obstruction. Stable since the prior study. 3. Stable posterior fusion construct lower lumbar spine spondylosis at L2-3 and partial compression injury of the superior T11 vertebral body. 4. Bilateral hip arthrosis and joint space loss with hypertrophic over covering of the femoral heads by the acetabula which could be contributing to pincer-type femoral acetabular impingement. Stable since the prior study. 5. Stable diverticulosis in the sigmoid colon. Electronically signed by: Bryan Porter MD 10/27/2017 9:53 AM CDT
[2017-10-27 10:41] VITALS: BP 173/85; TEMP 97.5; O2SAT 94
== END 2017-10-27 10:25 | disposition home or self-care (01) ==
LOC: ER 08:01
DX: R41.82 Altered mental status, unspecified (principal); R53.1 Weakness; J32.0 Chronic maxillary sinusitis; J32.3 Chronic sphenoidal sinusitis; M47.812 Spondylosis without myelopathy or radiculopathy, cervical region; G31.9 Degenerative disease of nervous system, unspecified; E78.5 Hyperlipidemia, unspecified; F03.90 Unspecified dementia, unspecified severity, without behavioral disturbance, psychotic disturbance, mood disturbance, and anxiety; I10 Essential (primary) hypertension; Z86.73 Personal history of transient ischemic attack (TIA), and cerebral infarction without residual deficits
CPT/HCPCS: 70450; 72125; 74176; 80053; 81001; 82550; 82553; 84484; 85025; 85610; 85730; 87086; 93005; J7030

== ENCOUNTER → 2018-06-14 | Outpatient (CLI) | payer MEDICARE, OTHER | LOC: GRH 15:30 | PROVIDERS: ATTEND Family Medicine | DX: R30.9 Painful micturition, unspecified (principal) ==